=== PATIENT | male | born 1975 | race Caucasian/White ===

== ENCOUNTER → 2021-10-11 14:56 | Outpatient (CLI) | payer MEDICAID, SELFPAY ==
[2021-10-11 15:17] LABS: Basophils # 0.1 K/mm3 (0-0.2); Basophils % 0.8 % (0.1-2.0); Eosinophils # 0.3 K/mm3 (0.0-0.4); Eosinophils % 4.1 % (0.1-12.0); Hematocrit 45.2 % (42.0-52.0); Lymphocytes # 1.6 K/mm3 (0.7-4.5); Lymphocytes % 25.5 % (10-50); Mean Corpuscular HGB Conc 33.1 g/dL (31.8-35.4); Mean Corpuscular Volume 96.6 fl (80-94); Mean Platelet Volume 9.7 fl (7.4-10.4); Monocytes # 0.4 K/mm3 (0.1-1.0); Neutrophils % 63.6 % (37.0-80.0); Platelet Count 270 K/mm3 (142-424); Red Blood Count 4.68 M/mm3 (4.60-6.20); Red Cell Distribution Width 13.6 % (11.5-17.5); White Blood Count 6.3 K/mm3 (4.8-10.8)
[2021-10-11 16:30] LABS: Alanine Aminotransferase 9 U/L (12-78); Albumin Level 4.5 g/dl (3.5-5.0); Albumin/Globulin Ratio 1.6 (1.1-1.8); Alkaline Phosphatase 76 U/L (38-126); Anion Gap 9.8 mEq/L (5-15); Aspartate Amino Transferase 22 U/L (17-59); Bilirubin,Total 0.2 mg/dl (0.2-1.3); Blood Urea Nitrogen 14 mg/dl (9-20); Calcium 9.3 mg/dl (8.4-10.2); Carbon Dioxide 30 mmol/L (22.0-30.0); Chloride 103 mmol/L (98-107); Cholesterol 195 mg/dl (140-200); Estimated Glomerular Filt Rate 91 ml/min (>60); GFR (African American) 110 ML/MIN (>60); Globulin 2.8 g/dL (1.3-3.2); Glucose 105 mg/dl (74-100); HDL Cholesterol 39 mg/dl (40-60); Potassium 4.8 mmoL/L (3.5-5.1); Sodium 138 mmol/L (136-145); Total Protein,Serum 7.3 g/dl (6.3-8.2); Triglycerides 86 mg/dl (30-150); VLDL Cholesterol 17 mg/dL (0-40)
[2021-10-11 16:41] LABS: Direct LDL Cholesterol 145.83 mg/dL (100-129)
== END ==
PROVIDERS: Visit Provider Family Medicine
DX: G43.909 Migraine, unspecified, not intractable, without status migrainosus (principal); R11.0 Nausea; R56.9 Unspecified convulsions
CPT/HCPCS: 80053; 80061; 85025

== ENCOUNTER → 2021-10-28 07:47 | Outpatient (CLI) | payer MEDICAID, SELFPAY ==
--- NOTE | 2021-10-28 07:56 | CT_ITS ---
PROCEDURE: CT HEAD/BRAIN WO/W CON CLINICAL INDICATION: seizure COMPARISON: No exams were available for comparison TECHNIQUE: IV Contrast: 100ML Isovue 370 Axial images obtained. All CT scans at the facility use one or more dose reduction, viz: automated exposure control, ma/kV adjustment per patient size (including targeted exams where dose is matched to indication, i.e. head), or iterative reconstruction technique. FINDINGS: No midline shift, mass effect, intracranial hemorrhage, hydrocephalus, or extra-axial fluid collection is evident. No enhancing lesions. Suspected small area of encephalomalacia in the left cerebellum superiorly. The calvarium has an unremarkable appearance. No mastoid effusion. Mild mucosal thickening of the ethmoid sinuses. IMPRESSION: No acute intracranial findings. Suspected small area of encephalomalacia in the left cerebellar hemisphere superiorly Dictated by: Clyde Nuno MD 10/28/2021 17:38 Clyde Nuno MD in [facility] 10/28/2021 17:38
== END ==
PROVIDERS: PCP Family Medicine; Visit Provider Family Medicine
DX: R56.9 Unspecified convulsions (principal)
CPT/HCPCS: 70470; Q9967

== ENCOUNTER → 2021-11-04 12:42 | Outpatient (CLI) | payer MEDICAID, SELFPAY ==
--- NOTE | 2021-11-04 13:05 | MR_ITS ---
PROCEDURE: MR HEAD/BRAIN WO/W CON CLINICAL INDICATION: seizure COMPARISON: CT CT HEAD/BRAIN WO/W CON from 10/28/2021 TECHNIQUE: Routine multiplanar multi echo sequences are performed without and with gadolinium enhancement. FINDINGS: No midline shift, mass effect, intracranial hemorrhage, or hydrocephalus. No evidence of acute infarction. No enhancing lesions. No areas of encephalomalacia. Abnormality noted on the CT scan is felt to have been due to partial volume averaging artifact. The cerebellopontine angles, cerebellum, and brainstem have an unremarkable appearance. The pituitary, optic chiasm, corpus callosum, and craniocervical junction are unremarkable. There is slight decreased volume of the right hippocampal gyrus compared to the left side with minimal asymmetric prominence of the temporal horn of the right lateral ventricle. No increased signal intensity of the hippocampal gyrus. No mastoid effusion or sinus air-fluid level. IMPRESSION: No acute finding. There is is minimal prominence of the temporal horn of the right lateral ventricle with suggested slight decrease in the right hippocampal gyrus volume compared to the left side. These findings are nonspecific but may be seen with hippocampal sclerosis. Please correlate with clinical parameters and EEG findings. Dictated by: Clyde Nuno MD 11/05/2021 10:00 Clyde Nuno MD in [facility] 11/05/2021 10:00
== END ==
PROVIDERS: PCP Family Medicine; Visit Provider Specialist
DX: G40.909 Epilepsy, unspecified, not intractable, without status epilepticus (principal); Z91.89 Other specified personal risk factors, not elsewhere classified
CPT/HCPCS: 70553; 93270; A9576

== ENCOUNTER → 2021-11-08 09:30 | Outpatient (CLI) | payer MEDICAID, SELFPAY ==
--- NOTE | 2021-11-08 10:40 | ECG_ITS ---
APPROVED REPORT Exam: Resting ECG HR:51 bpm ECG Measurements Heart Rate 51 AXES FL 168 P 53 QRSd 92 QRS 76 QT 420 T 19 QTc 387 Conclusion Sinus bradycardia with sinus arrhythmia Otherwise normal ECG Electronically signed by : Lake Talbot MD 11/10/2021 13:27:19
== END ==
PROVIDERS: PCP Family Medicine; Visit Provider Specialist
DX: R00.1 Bradycardia, unspecified (principal)
CPT/HCPCS: 93005; 95816

== ENCOUNTER → 2021-11-26 09:05 | Outpatient (CLI) | payer MEDICAID, SELFPAY ==
--- NOTE | 2021-11-26 09:06 | CA_ITS ---
APPROVED REPORT Exam: Exercise Treadmill Technologist: Oneida Iraheta, Ht: 6 ft 2 in Wt: 178 lbs BSA: 2.07 m2 HR: 64 bpm BP: 106/73 mmHg Rhythm: NSR Medical History Medications: Ibuprofen,,,,, Allergies: FAMOTIDINE Cardiac Risk Factors: Smoking Stress Test Details Test: Dontrell, Exercise stress testing was performed using a Dontrell protocol. HR Resting HR: 67 bpm Max Heart Rate (APMHR): 174.718396 bpm Max HR Achieved: 168 bpm Target HR (85% APMHR): 147.339910 bpm % of APMHR: 96.55 Recovery HR: 75 bpm BP Resting BP: 113/71 mmHg Max BP: 175/70 mmHg Recovery BP: 734.0/77.0 mmHg ECG Resting ECG: NSR Clinical Reason for Termination: Leg pain Exercise duration: 09:40 min Highest Stage Achieved: Stage 3: 3.4 mph at 14% grade. Exercise capacity: 10.1 METs Stress ECG Conclusion PT EXERCISED 9:40 MIN. BP=905 BPM. 10.1 METS. TEST STOPPED DUE TO LEG CRAMPS. RARE PVCS EARLY IN STAGE I AND II. <1.G MM ST SEGMENT CHANGES. NEGATIVE. Test Summary Stage 2 02:00 12.0 2.5 106 . . . . REST . . . . . . . Sitting REST 08:57 0.0 1.2 67 . 113/ 71 . . Stage 1 01:00 10.0 1.7 93 . . . . Stage 1 02:00 10.0 1.7 98 . . . . Stage 1 03:00 10.0 1.7 92 . 145/ 60 . . Stage 2 01:00 12.0 2.5 106 . . . . Stage 2 02:00 12.0 2.5 106 . . . . Stage 2 03:00 12.0 2.5 111 . 155/ 70 . . Stage 3 01:00 14.0 3.4 134 . . . . Stage 3 02:00 14.0 3.4 135 . . . . Stage 3 03:00 14.0 3.4 141 . 160/ 80 . . Stage 4 00:40 16.0 2.2 157 . . . Stop exercise at 09:40 RECOVERY 01:00 0.0 0.0 128 . 175/ 70 . . RECOVERY 02:00 0.0 0.0 85 . 175/ 70 . . RECOVERY 03:00 0.0 0.0 93 . 175/ 70 . . RECOVERY 04:00 0.0 0.0 87 . 140/ 87 . . RECOVERY 05:00 0.0 0.0 76 . 134/ 77 . . RECOVERY 06:00 0.0 0.0 0 . 134/ 77 . . RECOVERY 06:56 0.0 0.0 0 . 134/ 77 . . Electronically signed by : Kamaljit Barragan MD 11/26/2021 12:54:47
--- NOTE | 2021-11-26 09:06 | CA_ITS ---
APPROVED REPORT EXAM: Comprehensive 2D, Doppler, and color-flow Echocardiogram Regional Vice President Surgical Sales: Sandra Hurley CRT Ht: 6 ft 2 in Wt: 178lbs BSA: 2.07 BP: 100/70 mmHg Indications: abnormal ekg, syncope, dizziness 2D Dimensions LVOT 1.94 cm (M/F) 1.5-2.5 LA Volume 44.20 mL LA Volume Index 21.40 mL/m2 (M/F) 16-34 M-Mode Dimensions RVDd 2.33 cm (0.9-2.6) LA Diam 1.90 cm (1.9-4.0) LVDd 4.55 cm (3.5-5.7) Ao Diam 3.23 cm (2.0-3.7) LVDs 2.89 cm (3.5-5.7) IVSd 1.15 cm (0.6-1.1) PWd 0.70 cm (0.6-1.1) EF (Teich) 66.40% FS 36.50% EDV (Teich) 94.90 mL TAPSE 2.78 (<1.7) ESV (Teich) 31.90 mL LV Diastology E Decel Time 297.00 (160-240 msec) E/A Ratio 1.40 MED E' 10.20 (< 7 cm/sec) MED A' 7.20 cm/s E'/MED E' Ratio 6.37 (>14) LAT E' 11.80 (<10 cm/sec) LAT A' 8.00 cm/s E/LAT E' Ratio 5.51 (>14) Aortic Valve AO Peak GR. 6.00 mmHg Mitral Valve MV E Max Dell. 65.00 (40-130 cm/s) MV A Velocity 47.00 (40-130 cm/s) E/A Ratio 1.40 MV Decel. Time 297.00 (160-240 ms) MV PHT 87.00 ms Pulmonary Valve PV Peak Velocity 92.00 (50-150 cm/s) Tricuspid Valve TR P. Velocity 154.00 cm/s RAP Estimate 10.00 mmHg RVSP 19.50 mmHg Left Ventricle Left atrium is normal size, left ventricle is normal size, there is no concentric left ventricular hypertrophy, visually estimated ejection fraction of 55% with no regional wall motion abnormality. Diastolic parameters are within normal range. Right Ventricle Right atrium and right ventricle are normal size and contractility. Aortic Valve Aortic valve is normal there is no aortic stenosis or aortic insufficiency. Mitral Valve Mitral valve grossly normal, there is no significant mitral regurgitation. Tricuspid Valve Tricuspid valve is grossly normal, there is no significant tricuspid regurgitation. Pulmonic Valve Pulmonic valve is poorly visualized. Great Vessels Aortic root is normal size. Inferior vena cava is normal size with normal contractility. Pericardium No significant pericardial effusion noted. Conclusion 1. Normal left ventricular size, preserved left ventricular systolic function, visually estimated ejection fraction of 55% with no regional wall motion abnormality, diastolic parameters are within normal range. 2. No significant pericardial effusion noted. 3. Inferior vena cava normal size with normal inspiratory collapse. Electronically signed by : Kamaljit Barragan MD 11/26/2021 14:23:19
== END ==
PROVIDERS: PCP Family Medicine; Visit Provider Nurse Practitioner Family
DX: R42 Dizziness and giddiness (principal); R55 Syncope and collapse; R94.31 Abnormal electrocardiogram [ECG] [EKG]; F17.200 Nicotine dependence, unspecified, uncomplicated
CPT/HCPCS: 93017; 93306

== ENCOUNTER → 2021-12-04 10:03 | Outpatient (CLI) | payer MEDICAID, SELFPAY | PROVIDERS: PCP Family Medicine; Visit Provider Surgery | DX: Z01.812 Encounter for preprocedural laboratory examination (principal); Z11.52 Encounter for screening for COVID-19; Z12.11 Encounter for screening for malignant neoplasm of colon | CPT/HCPCS: C9803; U0003; U0005 ==

== ENCOUNTER 2021-12-07 11:05 | Day surgery (SDC) | payer MEDICAID, SELFPAY ==
[2021-12-03 13:49] VITALS: BMI 23.1
[2021-12-07 11:18] VITALS: BP 140/95; PULSE 55; RESP 16; TEMP 37.2; O2SAT 98
--- NOTE | 2021-12-07 11:56 | P.PN_ITS ---
[facility] Anesthesia Checklist - Patient Identification Patient Identification: Arm Band - Structural Data Admitted From: Home Planned Operative Procedure/s: colonoscopy Consent for Planned Operative Procedure(s) Verified: Yes Verified Documents: Surgical Consent, History and Physical - NPO Status Verified Time NPO: 00:00 - Additional verifications Anesthesia Reactions: No - Airway Assessment C-Spine Mobility Assessed: Yes (mp2) TMJ Mobility Assessed: Yes Dentition: Good Dentition - Neurological Assessment Level of Consciousness: Awake, Alert - Anesthesia Plan Anesthesia Risk discussed: Yes Anesthesia Plan: Verified ASA Class: II Anesthesia Type: MAC [facility] History I have reviewed the patient's past medical history: Yes Medical History: Reports:: Cancer (childhood-possible), Hiatal Hernia, Kidney Stones, Migraine, Palpitations Denies:: Diabetes Mellitus Type 1, Diabetes Mellitus Type 2, Internal Pacemaker, MRSA, Seizures *Have you ever received a pneumonia vaccine?: No *Have you received a flu vaccine this season?: No Anesthesia experience/problems:: nac Laterality Cases: Left: Arthroscopy Shoulder Other Surgeries: Yes: Other. No: Pacemaker Amputation: No Fractures: Yes - *Social History Last grade of school completed: Some college Smoking Status: Current every day smoker Tobacco Type: cigarettes # Packs/Day (cigarettes): 1 Alcohol Intake: current Alcohol Intake Frequency:: holidays/special occasions only Substance Use Type: marijuana *Occupational Status:: employed Housing: house Household Members: none *Travel in the last 8 weeks: Inside the [facility] Family Hx:: Diabetes, Other, Cancer
[2021-12-07 12:26] VITALS: O2SAT 97
--- NOTE | 2021-12-07 13:08 | P.PCN_ITS ---
- Procedure: Date: 12/07/21 Patient Date of :: 1975 Procedure Performed:: Colonoscopy with polypectomy Indications:: Screening Family history of colon cancer Performing Provider:: José Manuel Cote MD Referring Provider:: . Sedation:: Monitored anesthesia care Procedure:: After informed consent was obtained the patient was taken to the endoscopy s [facility]. Sedation ensued after the patient was transferred to the left lateral decubitus position. Pulse, blood pressure, and oxygen saturation were monitored throughout the procedure. Digital rectal exam revealed no significant abnormality. The colonoscope was placed in position. The entire colon was evaluated. The colonoscope was carefully removed and the patient was transferred to recovery in stable condition. Please see findings and specimens below for detail. Findings:: Bowel preparation moderate to poor Hemorrhoidal cushions/tags with no thrombosis or active bleeding Fairly significant lack of relaxation Multiple complex polyps (see specimens) Specimens:: Biopsy of periappendiceal apparent submucosal lipoma Large lobulated polyp at 60 cm (snare) Large pedunculated/lobulated polyp at 30 cm (snare) Complex lobulated polyp at 20 cm (snare) Recommendations:: Timing of repeat colonoscopy is pending pathology but will likely be between 1-2 years secondary to size/nature of polyps and limitations in visualization. Complications:: No immediate Estimated blood obtained (mL): 1
[2021-12-07 13:10] VITALS: BP 113/61; PULSE 86; RESP 19; TEMP 36.4; O2SAT 97
[2021-12-07 13:27] VITALS: BP 124/69; PULSE 61; RESP 16; O2SAT 99
[2021-12-07 13:40] VITALS: BP 109/62; PULSE 60; RESP 16; O2SAT 98
== END 2021-12-07 13:40 | disposition home or self-care (01) ==
LOC: OUTP 11:06
PROVIDERS: PCP Family Medicine; Visit Provider Surgery
PROC: 0DJD8ZZ Inspection of Lower Intestinal Tract, Via Natural or Artificial Opening Endoscopic (ICD-10-PCS; CPT 45380; principal; 2021-12-07 12:30)
DX: Z12.11 Encounter for screening for malignant neoplasm of colon (principal); Z80.0 Family history of malignant neoplasm of digestive organs; K64.0 First degree hemorrhoids; K63.5 Polyp of colon; K63.89 Other specified diseases of intestine; G43.909 Migraine, unspecified, not intractable, without status migrainosus; R00.2 Palpitations; Z72.0 Tobacco use; F12.90 Cannabis use, unspecified, uncomplicated; Z83.3 Family history of diabetes mellitus; Z80.9 Family history of malignant neoplasm, unspecified; Z88.8 Allergy status to other drugs, medicaments and biological substances
CPT/HCPCS: 45380; 45385

== ENCOUNTER → 2022-01-19 15:42 | Outpatient (CLI) | payer MEDICAID, SELFPAY | PROVIDERS: Visit Provider Nurse Practitioner Family | DX: R10.9 Unspecified abdominal pain (principal) | CPT/HCPCS: 87086 ==

== ENCOUNTER → 2022-12-22 10:51 | Outpatient (CLI) | payer MEDICAID, SELFPAY ==
--- NOTE | 2022-12-22 10:57 | CT_ITS ---
FINAL REPORT TECHNIQUE: Axial CT images were performed through the head. Coronal reformatted images were submitted. This study was performed with techniques to keep radiation doses as low as reasonably achievable (ALARA). Individualized dose reduction techniques using automated exposure control or adjustment of mA and/or kV according to the patient's size were employed. CLINICAL HISTORY: . headaches COMPARISON: 12/29/2020 FINDINGS: The ventricles are normal in size. There is no evidence of hemorrhage. There is no mass or edema identified. There is no abnormal extra-axial fluid seen. The sinuses are well aerated. IMPRESSION: No acute intracranial process. Reviewed, Interpreted and Dictated by Ricki Garzon MD Transcribed by Jennifer Monet Authenticated and [facility]
== END ==
PROVIDERS: PCP Family Medicine; Visit Provider Student in an Organized Health Care Education/Training Program
DX: G43.909 Migraine, unspecified, not intractable, without status migrainosus (principal)
CPT/HCPCS: 70450

== ENCOUNTER 2023-03-21 09:30 | Day surgery (SDC) | payer MEDICAID, SELFPAY ==
[2023-03-15 15:10] VITALS: BMI 23.1
--- NOTE | 2023-03-15 15:13 | SUR.PREOP ---
pt received two scripts for procedure. spoke with dr. carey office, BJ is to call patient to instruct him on which one to take before the procedure.
[2023-03-21] VITALS (7 sets, daily range): BP systolic 106–124; BP diastolic 62–83; PULSE 54–71; RESP 14–18; TEMP 36.2–36.8; O2SAT 95–100
--- NOTE | 2023-03-21 09:53 | EXP.ANES.CKL ---
[facility] Disclaimer: The information contained in this section may have been updated after the patient was seen, as this information can be updated by other users. Medical History Abnormal electrocardiography Dizziness Syncope Tobacco dependence syndrome Surgical History History of colonoscopy Family History Other Family history of cancer Family history of hyperlipidemia Family history of hypertension Family history of myocardial infarction Social History Smoking Status: Current every day smoker tobacco type: cigarettes packs per day: 1 alcohol intake: never substance use type: marijuana current occupational status: employed Travel in the last 8 weeks: None household members: none housing: house caffeine: Yes [facility] Anesthesia Checklist Patient Identification Patient Identification: Arm Band and Verbal (Name & ) Structural Data Admitted From: Home Planned Operative Procedure/s: Colonoscopy Consent for Planned Operative Procedure(s) Verified: Yes NPO Status Verified Time NPO: 00:00 Additional verifications Anesthesia Reactions: No (states woke up during surgery in past) Hx Blood Transfusions: No Blood Transfusion Reaction: No Airway Assessment C-Spine Mobility Assessed: Yes TMJ Mobility Assessed: Yes Dentition: Good Dentition Neurological Assessment Level of Consciousness: Awake Hx Seizures: No Numbness or tingling in extremities: No Anesthesia Plan Anesthesia Risk discussed: Yes Anesthesia Plan: Verified ASA Class: I Anesthesia Type: MAC
--- NOTE | 2023-03-21 10:41 | HMH.SCOPE ---
Procedure: Date: 03/21/23 Patient Date of :: 1975 Procedure Performed:: Colonoscopy with polypectomy Indications:: History of colon polyps Bleeding hemorrhoids Performing Provider:: José Manuel Cote MD Referring Provider:: . Sedation:: Monitored anesthesia care Procedure:: After informed consent was obtained the patient was taken to the endoscopy suite. Sedation ensued after the patient was transferred to the left lateral decubitus position. Pulse, blood pressure, and oxygen saturation were monitored throughout the procedure. Digital rectal exam revealed no significant abnormality (some lateral thickening consistent with hemorrhoidal cushions noted). The colonoscope was placed in position. The entire colon was evaluated. The colonoscope was carefully removed and the patient was transferred to recovery in stable condition. Please see findings and specimens below for detail. Findings:: Bowel preparation fair Hemorrhoidal cushions/tags with no thrombosis or bleeding Moderate spasticity/tortuosity Polyps (see specimens) Specimens:: Adjacent sessile polyps at 45 cm (cold snare) Polyp at 40 cm (cold snare) Polyp at 70 cm (cold biopsy forceps) Recommendations:: Timing of repeat colonoscopy is pending pathology but will be likely around 1-2 years secondary to history of multiple complex polyps on multiple occasions and spasticity/tortuosity. Continue current therapy for hemorrhoids. May benefit from examination under anesthesia. Complications:: No immediate Estimated blood obtained (mL): 1
== END 2023-03-21 11:21 | disposition home or self-care (01) ==
PROVIDERS: PCP Family Medicine; Visit Provider Surgery
PROC: 0DJD8ZZ Inspection of Lower Intestinal Tract, Via Natural or Artificial Opening Endoscopic (ICD-10-PCS; CPT 45380; principal; 2023-03-21 10:30)
DX: K64.8 Other hemorrhoids (principal); D12.5 Benign neoplasm of sigmoid colon; D12.7 Benign neoplasm of rectosigmoid junction
CPT/HCPCS: 45380; 45385; J2704

== ENCOUNTER → 2023-03-27 11:39 | Outpatient (CLI) | payer MEDICAID, SELFPAY ==
--- NOTE | 2023-03-27 11:41 | XR_ITS ---
FINAL REPORT CLINICAL HISTORY: pain FINDINGS: 2 views of the right knee were obtained. There is no acute fracture or dislocation. The joint spaces are intact. There is no acute soft tissue abnormality. IMPRESSION: No acute process. Reviewed, Interpreted and Dictated by Lauro Mcclain III, MD Transcribed by Quirino Ha Authenticated and [facility]
== END ==
PROVIDERS: PCP Family Medicine; Visit Provider Family Medicine
DX: M25.561 Pain in right knee (principal)
CPT/HCPCS: 73560

== ENCOUNTER → 2023-05-08 13:35 | Outpatient (CLI) | payer OTHER, MEDICAID, SELFPAY ==
--- NOTE | 2023-05-08 13:42 | MR_ITS ---
FINAL REPORT CLINICAL HISTORY: Rt knee pain. MEDIAL SIDED KNEE PAIN WITH SWELLING. KNEE INSTABILITY FINDINGS: Multiplanar MR imaging of the right knee was performed without contrast. There is abnormal appearance of the posterior horn of the medial meniscus consistent with tear. Lateral meniscus is intact. The anterior and posterior cruciate ligaments are intact. The medial collateral ligament and lateral ligamentous complex are intact. The patellar and quadriceps tendons are intact. There is no evidence of fracture. No focal abnormality is identified of the articular cartilage. A small joint effusion is seen. The musculature is intact. No soft tissue mass or cyst is identified. IMPRESSION: Tear of the posterior horn of the medial meniscus. Small joint effusion. Reviewed, Interpreted and Dictated by Lauro Mcclain III, MD Transcribed by Naomie Ortiz Authenticated and [facility]
== END ==
PROVIDERS: PCP Family Medicine; Visit Provider Orthopaedic Surgery
DX: M25.561 Pain in right knee (principal)
CPT/HCPCS: 73721

== ENCOUNTER → 2023-05-11 11:40 | Outpatient (CLI) | payer OTHER, MEDICAID, SELFPAY ==
[2023-05-11 11:44] LABS: MANUAL DIFFERENTIAL MANUAL DIFFERENTIAL (MANUAL DIFF)
--- NOTE | 2023-05-11 11:50 | XR_ITS ---
FINAL REPORT CLINICAL HISTORY: cough, h/o tobacco use Pre op testing for knee surgery FINDINGS: TWO VIEW CHEST The heart size is normal. The mediastinum is normal. The lungs are clear. There is no pneumothorax. IMPRESSION: No acute cardiopulmonary process. Reviewed, Interpreted and Dictated by Lauro Mcclain III, MD Transcribed by Luisa Phillips Authenticated and [facility]
[2023-05-11 12:03] LABS: Basophils % 0.5 % (0.1-2.0); Eosinophils # 0.3 K/mm3 (0.0-0.4); Eosinophils % 5.5 % (0.1-12.0); Hematocrit 42.3 % (42.0-52.0); Hemoglobin 13.5 g/dL (14.1-18.0); Lymphocytes # 1.7 K/mm3 (0.7-4.5); Lymphocytes % 31.2 % (10-50); Mean Corpuscular HGB Conc 31.9 g/dL (31.8-35.4); Mean Corpuscular Hemoglobin 30.7 pg (27.0-31.2); Mean Corpuscular Volume 96.2 fl (80-94); Mean Platelet Volume 7.8 fl (7.4-10.4); Monocytes # 0.4 K/mm3 (0.1-1.0); Monocytes % 7.1 % (1.7-9.3); Neutrophils # 3.1 K/mm3 (1.8-7.8); Neutrophils % 55.7 % (37.0-80.0); Platelet Count 214 K/mm3 (142-424); Red Blood Count 4.39 M/mm3 (4.60-6.20); Red Cell Distribution Width 13.5 % (11.5-17.5); White Blood Count 5.6 K/mm3 (4.8-10.8)
[2023-05-11 12:41] LABS: Alanine Aminotransferase 15 U/L (12-78); Albumin Level 4.2 g/dl (3.5-5.0); Albumin/Globulin Ratio 1.6 (1.1-1.8); Alkaline Phosphatase 76 U/L (38-126); Anion Gap 12.6 mEq/L (5-15); Aspartate Amino Transferase 21 U/L (17-59); Bilirubin,Total 0.3 mg/dl (0.2-1.3); Blood Urea Nitrogen 13 mg/dl (9-20); Calcium 8.5 mg/dl (8.4-10.2); Carbon Dioxide 30 mmol/L (22.0-30.0); Chloride 101 mmol/L (98-107); Estimated Glomerular Filt Rate 90 ml/min (>60); GFR (African American) 109 ML/MIN (>60); Globulin 2.6 g/dL (1.3-3.2); Glucose 79 mg/dl (74-100); Potassium 4.6 mmoL/L (3.5-5.1); Sodium 139 mmol/L (136-145); Total Protein,Serum 6.8 g/dl (6.3-8.2)
--- NOTE | 2023-05-11 15:07 | ECG_ITS ---
APPROVED REPORT Exam: Resting ECG HR:56 bpm ECG Measurements Heart Rate 56 AXES VA 180 P 70 QRSd 82 QRS 82 QT 377 T 51 QTc 369 Conclusion SINUS BRADYCARDIA BORDERLINE ECG UNCONFIRMED REPORT Electronically signed by : Lake Talbot MD 05/11/2023 22:20:06
[2023-05-11 15:48] LABS: Eosinophils % 1 % (0-3); Lymphocytes % 40 % (10-50); Monocytes % 3 % (2-9); Neutrophils % 56 % (42-76); Platelet Estimate Normal; RBC Morphology Normal; Total Cells Counted 100
== END ==
PROVIDERS: PCP Family Medicine; Visit Provider Orthopaedic Surgery
DX: Z01.818 Encounter for other preprocedural examination (principal); S83.231A Complex tear of medial meniscus, current injury, right knee, initial encounter
CPT/HCPCS: 36415; 71046; 80053; 85007; 85014; 85018; 85048; 85049; 93005

== ENCOUNTER 2023-05-29 06:01 | Day surgery (SDC) | payer OTHER, MEDICAID, SELFPAY ==
[2023-05-26 10:27] VITALS: BMI 23.1
[2023-05-29] VITALS (9 sets, daily range): BP systolic 105–123; BP diastolic 68–90; PULSE 52–67; RESP 14–18; TEMP 36.6–36.8; O2SAT 95–100
--- NOTE | 2023-05-29 07:06 | EXP.ANES.CKL ---
[facility] Disclaimer: The information contained in this section may have been updated after the patient was seen, as this information can be updated by other users. Medical History Abnormal electrocardiography Dizziness History of bradycardia History of migraine Syncope Tobacco dependence syndrome Surgical History (Updated 05/29/23 @ 06:42 by Eleni Dean RN) H/O elbow surgery History of colonoscopy History of shoulder surgery History of surgery Family History Other Family history of cancer Family history of hyperlipidemia Family history of hypertension Family history of myocardial infarction Social History Smoking Status: Current every day smoker tobacco type: cigarettes packs per day: 1 years smoked: 35 alcohol intake: former substance use type: marijuana current occupational status: employed Travel in the last 8 weeks: Inside the [place] household members: none housing: house caffeine: Yes [facility] Anesthesia Checklist Patient Identification Patient Identification: Verbal (Name & ) Structural Data Admitted From: Home Planned Operative Procedure/s: knee arthroscopy Consent for Planned Operative Procedure(s) Verified: Yes NPO Status Verified Time NPO: 00:00 Additional verifications Anesthesia Reactions: No (PT STATES HE WOKE UP DURING PAST SURGERY) Hx Blood Transfusions: No Blood Transfusion Reaction: No Airway Assessment C-Spine Mobility Assessed: Yes TMJ Mobility Assessed: Yes Dentition: Good Dentition Neurological Assessment Level of Consciousness: Awake, Alert and Appropriate Anesthesia Plan Anesthesia Risk discussed: Yes Anesthesia Plan: Verified ASA Class: II Anesthesia Type: General
--- NOTE | 2023-05-29 08:00 | P.OP_ITS ---
Date of procedure: 05/29/23 Pre-op Diagnosis:: Right knee medial meniscus tear Post-op Diagnosis:: Same Procedure performed:: Right knee arthroscopy partial medial meniscectomy Surgeon:: Eder Chase DO SUPERVISOR [employer]:: Other Anesthesia: GETA Estimated blood loss (mL): 0 Operative findings:: See dictation Operative note:: Patient was identified preoperatively. Right knee marked with yes my initials. Transferred operative suite. Placed upon operating bed. Right lower extremity prepped and draped within the knee lion. Once prepped and draped final operative timeout performed to identify proper patient procedure and extremity. Everyone involved in the case agreed. No counter indications to beginning. Did receive preoperative antibiotics. Marking pen was used to jeffy bony landmarks in the and standard portal sites. Esmarch was used to exsanguinate the extremity pneumatic tourniquet inflated to 300 mmHg. Skin knife was used to incise standard anterior lateral portal and blunt with trocar was placed in the patellofemoral joint. This was exchanged with a camera and diagnostic arthroscopy began. Swept into the medial joint line where the anterior medial portal was made under direct visualization. This is exchanged with a probe. There is a large macerated tear of the posterior horn of the medial meniscus. Using a combination of straight biter and sucker shaver partial medial meniscectomy was performed back to stable rim. This was probed and the root was stable and the meniscus was stable. Tensions brought to the intercondylar notch the ACL was seen and intact. Tensions brought to the lateral joint line within the lateral joint line the lateral cartilage was intact the lateral meniscus was intact. I swept into the medial and lateral gutters no further pathology was seen camera was removed. Joint drained. Local anesthesia infiltrated the portal sites. Skin closed with nylon stitch. Sterile dressing placed from toe to thigh. Patient waken anesthesia taken recovery stable condition. Tourniquet time (min): 13 Condition: stable Disposition: PACU Complications:: None apparent
--- NOTE | 2023-05-29 08:07 | EXP.ANES.I ---
[facility] Anesthesia Record Part I Anesthesia Record I Intake, IV Amount: 700 Estimated blood loss (mL): 10 Urine output (mL): 0 Blood Products used (#): none Blood Pressure: 105/79 SaO2: 95 Pulse Rate: 58 Respiratory Rate: 14 Temperature: 98.1 F Patient is:: Drowsy and Stable Stable to PACU at:: 08:05
--- NOTE | 2023-05-30 07:26 | P.PNANES_ITS ---
[facility] Anesthesia Record Part II Anesthesia Record Part II Discharge Time: 08:35 Destination: Surgical Day Care (OP Surgery) PACU nurse assessment reviewed?: Yes Patient Condition:: Good Anesthesia Complications:: None Swallowing reflex intact?: Yes Cyanosis?: No Blood Pressure: 116/79 Pulse Rate: 67 Temperature: 97.9 F Mental Status: Alert & Oriented Pain level:: 0 Nausea and/or vomitting:: None Intake, IV Amount: 0
[2023-05-30 07:27] VITALS: BP 116/79; PULSE 67; TEMP 36.6
== END 2023-05-29 09:07 | disposition home or self-care (01) ==
PROVIDERS: PCP Family Medicine; Visit Provider Orthopaedic Surgery
PROC: (CPT 29870; principal; 2023-05-29 07:30)
DX: S83.231A Complex tear of medial meniscus, current injury, right knee, initial encounter (principal); W22.8XXA Striking against or struck by other objects, initial encounter
CPT/HCPCS: 29881; 96374; J2405

== ENCOUNTER 2023-08-15 14:00 | Outpatient (RCR) | payer OTHER, MEDICAID, SELFPAY ==
--- NOTE | 2023-07-26 13:46 | HMH.PTOPEV ---
PT Outpatient Evaluation Rehab PT Outpatient Evaluation Start: 07/26/23 11:05 Freq: Status: Active Protocol: Document 07/26/23 11:43 KWASI (Rec: 07/26/23 13:46 KWASI [id number]) E-signed By Jordy Whitman, PT Outpatient Therapy Subjective History Subjective History Patient is a 47 year old male presenting to outpatient PT with reports of R post- surgical knee pain S/P R partial medial meniscectomy performed 05/29/23. Initial injury occurred after a pallet jess hit the side of his knee 02/2023. Patient reports that initially S/P he was nearly pain free until he woke up from sleeping after feeling a pop in the R knee. Patient reports excruciating pain ever since. Patient followed up with MD and received an injection which has provided no relief per patient report. Comorbidities include hx of cancer, L RCR and ulnar tunnel release bilaterally. New diagnosis of cancer in past 12 No months? Chief Complaint Pain,Stiff,Swelling,Gives out/ Unstable Symptom Type Ache,Throb,Sharp Symptoms Relieved By Nothing Symptoms Aggravated By Standing,Physical Activity, Twisting Prior Functional Limitations None Current Functional Limitations Housework,Standing,Recreation Activity,Walking,Stairs, Balance Symptom Description Constant but Variable Level of pain today (0-10) 6 Pain scale - at its best (0-10) 4 Pain scale - at its worst (0-10) 9 Hip/Knee Eval Gait Observation General Gait Pattern Observation Antalgic Gait,Decrease Weight Bear (R) Assistive Device Assistive Devices None / NA Palpation Tenderness right Knee Palpation Finding Tenderness Knee Palpation Overall Comment MJL, medial patellar border 3/ 4 MMT left Hip Flexion Strength Grade 4- Good- Hip Abduction Strength Grade 4- Good- Hip Adduction Strength Grade 4- Good- Hip Extension Strength Grade 4- Good- Hip External Rotation Strength Grade 4 Good Hip Internal Rotation Strength Grade 4 Good Knee Extension
== END 2023-08-15 14:05 | disposition home or self-care (01) ==
LOC: PT 14:00
PROVIDERS: PCP Family Medicine; Visit Provider Orthopaedic Surgery
DX: M25.561 Pain in right knee (principal); S83.231S Complex tear of medial meniscus, current injury, right knee, sequela
CPT/HCPCS: 97010; 97014; 97016; 97110; 97163; 97530; G0283

== ENCOUNTER → 2023-08-18 12:53 | Outpatient (CLI) | payer OTHER, MEDICAID, SELFPAY ==
--- NOTE | 2023-08-18 12:53 | MR_ITS ---
FINAL REPORT CLINICAL HISTORY: Rt Knee Pain swelling since surgery COMPARISON: 05/08/2023 FINDINGS: Multiplanar MR imaging of the right knee was performed without contrast. There are interval postoperative changes from partial medial meniscectomy. There is no evidence of retear. The lateral meniscus is intact. The anterior and posterior cruciate ligaments are intact. The medial collateral ligament and lateral ligamentous complex are intact. The patellar and quadriceps tendons are intact. There is no evidence of fracture. There is moderate chondromalacia in the medial tibial plateau which has progressed since the prior exam. A small joint effusion is seen. The musculature is intact. No soft tissue mass or cyst is identified. IMPRESSION: Postoperative changes from partial medial meniscectomy with no evidence of retear. 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 Small joint effusion. Reviewed, Interpreted and Dictated by Lauro Mcclain III, MD Transcribed by Lo Gaxiola Authenticated and [facility]
== END ==
PROVIDERS: PCP Family Medicine; Visit Provider Orthopaedic Surgery
DX: Z98.890 Other specified postprocedural states (principal)
CPT/HCPCS: 73721

== ENCOUNTER → 2023-09-07 11:28 | Outpatient (CLI) | payer MEDICAID, SELFPAY ==
--- NOTE | 2023-09-07 11:29 | MR_ITS ---
FINAL REPORT CLINICAL HISTORY: low back pain. pain radiates down right lower extremity. COMPARISON: None FINDINGS: Multiplanar MR imaging of the lumbar spine was performed without contrast. On the sagittal T2-weighted images, disc degeneration is seen at several levels.. There is mild retrolisthesis of L4 on L5. There is no evidence of fracture. No bony mass is identified. The conus has an unremarkable appearance. No significant canal stenosis is identified. L1-2: No significant central canal stenosis or neuroforaminal narrowing. L2-3: No significant central canal stenosis or neuroforaminal narrowing. L3-4: There is a left foraminal annular tear present, and an associated disc protrusion. This produces mild right and moderate left neural foraminal narrowing. L4-5: An annular bulge is present with a posterior midline annular tear and a small left paracentral disc protrusion. There is moderate bilateral neural foraminal narrowing. L5-S1: Right foraminal annular tear and broad-based disc protrusion producing moderate right and mild left neural foraminal narrowing. IMPRESSION: Moderate degenerative change in the lumbar spine, L3-4, L4-5, and L5-S1, as described. Reviewed, Interpreted and Dictated by Lauro Mcclain III, MD Transcribed by Ashely Herrera Authenticated and [facility]
== END ==
PROVIDERS: PCP Family Medicine; Visit Provider Orthopaedic Surgery
DX: S39.92XA Unspecified injury of lower back, initial encounter (principal); Y99.9 Unspecified external cause status
CPT/HCPCS: 72148

== ENCOUNTER → 2023-10-26 08:53 | Outpatient (POV) | payer MEDICAID, SELFPAY ==
[2023-10-26 09:47] VITALS: BP 116/80; PULSE 76; RESP 18; O2SAT 96; BMI 22.4
--- NOTE | 2023-10-26 10:07 | EXP.PAIN.OV ---
HPI Data of Consult Patient: new to practice Consult date: 10/26/23 Requesting Physician: Amanda Chase APRN Primary Care Provider: Ahsan Sung MD Consult Narrative Reason for consult: Right knee pain, low back pain, left leg pain History of present illness: Mr. Camargo is a 48 year old male who presents today as a new patient. He is a referral from Derek Chase's office. Today he rates his pain a 4 out of 10. Patient states most of his pain is in his right knee as well as he has chronic pain in his low back with radiating symptoms down his entire right leg. Patient states the knee issues have been going on since February following a work-related injury. Patient states he did end up having a torn meniscus and had a knee scope procedure to repair however he is continue to have chronic pain at this site. Patient does describe this as a sharp achy sensation that is worse with increased activity or certain range of motion. He states he is very limited and has difficulty performing ADLs such as cooking or cleaning or even simple ambulation due to the pain. Patient was given an intra-articular knee injection however this made no improvement. Patient states he has tried [id number] Tylenol and ibuprofen along with heat and ice and topicals with no additional relief. Patient states that he has some improvement with a THC cream but it only helps on certain occasions. Patient has tried physical therapy along with at home exercising and stretching for longer than 6 weeks. Patient does state that his low back pain has been going on for years and does believe it has just been wear and tear. Patient states he was in the in the past and believes this may have played a role as well. Patient states that he also has numbness and tingling down his entire right leg. Patient has recently had updated imaging of his lumbar spine. Patient denies any previous back surgery or injections in his back. His Jesus has been reviewed and is appropriate. CC: Amanda Chase APRN [facility] Disclaimer: The information contained in this section may have been updated after the patient was seen, as this information can be updated by other users. Medical History Abnormal electrocardiography Dizziness History of bradycardia History of migraine Syncope Tobacco dependence syndrome Surgical History H/O elbow surgery left History of colonoscopy History of shoulder surgery left x2 shoulder scope History of surgery tumor removed from left chest area Family History Other Family history of cancer Family history of hyperlipidemia Family history of hypertension Family history of myocardial infarction Social History (Updated 10/26/23 @ 09:49 by Raeann Du RN) Smoking Status: Current every day smoker tobacco type: cigarettes packs per day: 1 years smoked: 35 alcohol intake: former substance use type: marijuana current occupational status: employed Travel in the last 8 weeks: [place] the [place] household members: none housing: house marital status: single caffeine: Yes Review of Systems Review of Systems Review of systems:: pertinent systems reviewed and negative unless documented below Review of systems (narrative): Review of Systems: General: No recent weight changes, no fever, no sleep disturbances Respiratory: No cough, no shortness of air, no recurring pulmonary infections Cardiovascular/peripheral vascular: No chest pain, no palpitations, no edema, no shortness of breath Gastrointestinal: No new onset incontinence, normal bowel movements reported Genitourinary: No new onset incontinence Musculoskeletal: Right knee pain, low back pain, right leg pain Psychiatric: [Normal mood/affect] Neurological: [Denies weakness in extremities], [denies balance
== END ==
PROVIDERS: PCP Family Medicine; Visit Provider Nurse Practitioner Family
DX: M51.16 Intervertebral disc disorders with radiculopathy, lumbar region (principal); M79.604 Pain in right leg; M25.561 Pain in right knee; G89.29 Other chronic pain; Z98.890 Other specified postprocedural states; M23.203 Derangement of unspecified medial meniscus due to old tear or injury, right knee
CPT/HCPCS: 99202; G0463

== ENCOUNTER 2023-11-10 07:47 | Day surgery (SDC) | payer OTHER, MEDICAID, SELFPAY ==
[2023-11-10 08:06] VITALS: BP 126/80; PULSE 73; RESP 16; TEMP 36.8; O2SAT 96; BMI 22.4
[2023-11-10 08:10] VITALS: BP 135/80; PULSE 72; PULSE 77; RESP 18; O2SAT 96
[2023-11-10] MEDS: BUPIVACAINE 0.25% 10ML INJ 25 MG IJ (08:10)
[2023-11-10] MEDS: methylPREDNISolone ACETATE 80MG/ML VIAL 80 MG (08:10)
[2023-11-10] MEDS: LIDOCAINE 1% 5ML PF VIAL 5 ML (08:10)
[2023-11-10 08:15] VITALS: BP 129/76; PULSE 67; RESP 16; O2SAT 96
--- NOTE | 2023-11-10 08:17 | EXP.PAIN.PRO ---
Procedure Date: 11/10/23 Time: 08:00 Anesthesiologist:: Zack Raines CRNA Complications:: None Pre-procedure Diagnosis:: Myofascial pain right distal quadriceps tendon. Myofascial pain right proximal patellar tendon. Chronic right knee pain. Status post right knee meniscectomy. Post-procedure Diagnosis:: Same. Indications for Procedure:: This patient is a very pleasant 48-year-old male comes our clinic today for trigger point injections of the right distal quadriceps tendon as well as the right proximal patellar tendon. He has chronic knee pain secondary to osteoarthritis as well as recent right knee meniscectomy. He continues to have knee pain with ambulation. Standing increases pain significantly. Flexion and extension are normal however painful. He rates his pain 7/10. Procedure Details:: Details of the procedure explained to the patient. The patient taken procedure room placed in sitting position. The area over the right knee was cleansed using chlorhexidine's cleansing solution. Using a 25-gauge inch and half needle the distal quadriceps tendon medially and laterally was injected with 4 cc of 1% lidocaine and 10 mg of Depo-Medrol. The same injection was given on the anterior proximal patellar tendon. Patient tolerated procedure without difficulty. There are no complications. Plan and Disposition:: Patient was discharged without incident.
== END 2023-11-10 08:15 | disposition home or self-care (01) ==
PROVIDERS: PCP Family Medicine; Visit Provider Nurse Anesthetist, Certified Registered
DX: M79.18 Myalgia, other site (principal); M25.561 Pain in right knee; G89.29 Other chronic pain
CPT/HCPCS: 20551; J1040

== ENCOUNTER → 2023-11-22 08:40 | Outpatient (POV) | payer OTHER, MEDICAID, SELFPAY ==
[2023-11-22 08:58] VITALS: BP 123/82; PULSE 86; RESP 18; O2SAT 95; BMI 23.1
--- NOTE | 2023-11-22 09:02 | A.OFFVIS_ITS ---
[facility] Pain Management SOAP Note Subjective:: Patient is a pleasant 48-year-old male who presents today for follow-up of right knee trigger point injections of the distal quadriceps tendon, right proximal patellar tendon on 11/10/2023. We are currently treating the patient for left knee pain/osteoarthritis, low back pain. Today he rates his pain a 5 out of 10. Patient denies any new trauma or injury. He does state that the injection provided no relief and that the lower injection actually caused worsening pain for 4 days. Patient continues to experience chronic pain in this knee related to a work injury. Patient did have a knee scope to clean up the torn meniscus however made no additional change in his pain. Patient does state that he is scheduled for follow-up with Dr. Chase tomorrow. Patient uses [id number] Tylenol and ibuprofen along with heat and ice and topicals such as a THC cream however only gets minimal relief. His Jesus has been reviewed and is appropriate. Review of Systems: General: No recent weight changes, no fever, no sleep disturbances Respiratory: No cough, no shortness of air, no recurring pulmonary infections Cardiovascular/peripheral vascular: No chest pain, no palpitations, no edema, no shortness of breath Gastrointestinal: No new onset incontinence, normal bowel movements reported Genitourinary: No new onset incontinence Musculoskeletal: Right knee pain Psychiatric: [Normal mood/affect] Neurological: [Denies weakness in extremities], [denies balance issues] Objective:: Physical Exam: General: Alert and oriented x3, no acute distress, pleasant and cooperative Lungs: Respirations even and unlabored, symmetrical chest expansion Eyes: PERRL Musculoskeletal: Flexion and extension of right knee somewhat guarded secondary to pain, [antalgic gait noted] Neurological: Speech clear, no gross sensory deficit Assessment:: Low back pain, right knee pain, right knee osteoarthritis Plan:: Patient continues to experience significant pain in his right knee that was unrelieved with recent injections. I will order the patient a compounded cream and we will follow-up with him in 2 weeks following his visit with Dr. Chase's office for reevaluation of symptoms and plan of care. Patient has been instructed to contact the clinic with any concerns before the next appointment. Dr. Eldridge has reviewed this note and agrees with this plan of care. This note was dictated using voice recognition software and make contain errors or omissions. [facility] Disclaimer: The information contained in this section may have been updated after the patient was seen, as this information can be updated by other users. Medical History Abnormal electrocardiography Dizziness History of bradycardia History of migraine Syncope Tobacco dependence syndrome Surgical History H/O elbow surgery left History of colonoscopy History of shoulder surgery left x2 shoulder scope History of surgery tumor removed from left chest area Family History Other Family history of cancer Family history of hyperlipidemia Family history of hypertension Family history of myocardial infarction Social History Smoking Status: Current every day smoker tobacco type: cigarettes packs per day: 1 years smoked: 35 alcohol intake: former substance use type: marijuana current occupational status: employed Travel in the last 8 weeks: None household members: none housing: house marital status: single caffeine: Yes
== END ==
PROVIDERS: PCP Family Medicine; Visit Provider Nurse Practitioner Family
DX: M17.11 Unilateral primary osteoarthritis, right knee (principal); M25.561 Pain in right knee; M54.50 Low back pain, unspecified
CPT/HCPCS: 99212; G0463

== ENCOUNTER → 2023-12-06 09:22 | Outpatient (POV) | payer OTHER, MEDICAID, SELFPAY ==
--- NOTE | 2023-12-06 10:04 | A.OFFVIS_ITS ---
[facility] Pain Management SOAP Note Subjective:: Patient is a pleasant 48-year-old male who presents today for follow-up. We are currently treating the patient for right knee pain/osteoarthritis, low back pain, elbow pain. Today he rates his pain a 4 out of 10. Patient denies any new trauma or injury. He does state that the compounded cream did not really seem to do anything on his knee however he states it did significantly improve his elbow symptoms. Patient does state that Dr. Chase did try to order an additional nerve block however it again was denied by insurance. Patient is unsure why it is getting denied and cannot say for sure what type of block it wants. Patient states he does have a follow-up with this office on December 21. His Jesus has been reviewed and is appropriate. Review of Systems: General: No recent weight changes, no fever, no sleep disturbances Respiratory: No cough, no shortness of air, no recurring pulmonary infections Cardiovascular/peripheral vascular: No chest pain, no palpitations, no edema, no shortness of breath Gastrointestinal: No new onset incontinence, normal bowel movements reported Genitourinary: No new onset incontinence Musculoskeletal: Right knee pain Psychiatric: [Normal mood/affect] Neurological: [Denies weakness in extremities], [denies balance issues] Objective:: Physical Exam: General: Alert and oriented x3, no acute distress, pleasant and cooperative Lungs: Respirations even and unlabored, symmetrical chest expansion Eyes: PERRL Musculoskeletal: Flexion and extension of right knee somewhat guarded secondary to pain, [antalgic gait noted] Neurological: Speech clear, no gross sensory deficit Assessment:: Low back pain, right knee pain/osteoarthritis, elbow pain Plan:: Patient continues to experience significant pain in his right knee with limited range of motion. Patient has tried intra-articular injections with Dr. Chase and trigger point injections at our office with minimal improvement. I have discussed with the patient if he continues to have chronic pain in this area and is not a candidate for a knee replacement he may be beneficial candidate for a spinal cord stimulator trial. Risk and benefits and educational handouts were given to the patient at today's visit. We will follow-up with this in 1 month for reevaluation of symptoms and plan of care. Patient has been instructed to contact the clinic with any concerns before the next appointment. Dr. Eldridge has reviewed this note and agrees with this plan of care. This note was dictated using voice recognition software and make contain errors or omissions. [facility] Disclaimer: The information contained in this section may have been updated after the patient was seen, as this information can be updated by other users. Medical History Abnormal electrocardiography Dizziness History of bradycardia History of migraine Syncope Tobacco dependence syndrome Surgical History H/O elbow surgery left History of colonoscopy History of shoulder surgery left x2 shoulder scope History of surgery tumor removed from left chest area Family History Other Family history of cancer Family history of hyperlipidemia Family history of hypertension Family history of myocardial infarction Social History Smoking Status: Current every day smoker tobacco type: cigarettes packs per day: 1 years smoked: 35 alcohol intake: former substance use type: marijuana current occupational status: employed Travel in the last 8 weeks: None household members: none housing: house marital status: single caffeine: Yes
[2023-12-06 10:40] VITALS: BP 125/79; PULSE 82; RESP 18; O2SAT 96; BMI 23.1
== END ==
PROVIDERS: PCP Family Medicine; Visit Provider Nurse Practitioner Family
DX: M17.11 Unilateral primary osteoarthritis, right knee (principal); M25.561 Pain in right knee; M54.50 Low back pain, unspecified; M25.529 Pain in unspecified elbow
CPT/HCPCS: 99212; G0463

== ENCOUNTER 2024-01-04 11:02 | Outpatient (POV) | payer OTHER, MEDICAID, SELFPAY ==
--- NOTE | 2024-01-04 11:24 | EXP.PAIN.SOA ---
[facility] Pain Management SOAP Note Subjective:: Patient is a pleasant 48-year-old male who presents today for follow-up. We are currently treating the patient for right knee pain/osteoarthritis, low back pain, elbow pain, lower right foot neuropathy. Today he rates his pain a 7 out of 10. Patient denies any new trauma or injury. He does state that he continues to have pain into and around his right knee with numbness and tingling into his lower right foot. Patient states that after trigger point injections he did have some improvement of the numbness however it is already back into 4 of his toes and the top of his ankle. Patient does state that this is an aching, throbbing sensation with numbness and tingling and does interfere with his ability perform activities of daily living. He does state that he did go back to Dr. Chase and discuss about the spinal cord stimulator trial and he was recommending that he proceed forward with this option. His Jesus has been reviewed and is appropriate. Review of Systems: General: No recent weight changes, no fever, no sleep disturbances Respiratory: No cough, no shortness of air, no recurring pulmonary infections Cardiovascular/peripheral vascular: No chest pain, no palpitations, no edema, no shortness of breath Gastrointestinal: No new onset incontinence, normal bowel movements reported Genitourinary: No new onset incontinence Musculoskeletal: Right knee pain, right foot/ankle pain Psychiatric: [Normal mood/affect] Neurological: [Denies weakness in extremities], [denies balance issues] Objective:: Physical Exam: General: Alert and oriented x3, no acute distress, pleasant and cooperative Lungs: Respirations even and unlabored, symmetrical chest expansion Eyes: PERRL Musculoskeletal: Flexion and extension of right knee somewhat guarded secondary to pain, [antalgic gait noted] Neurological: Speech clear, no gross sensory deficit Assessment:: Right knee pain/osteoarthritis, low back pain with lumbar radiculopathy symptoms right-sided, elbow pain, right foot neuropathy Plan:: Patient continues to experience significant pain from his right knee down into his right foot. Patient did have limited range of motion of his right knee during today's exam. Patient has tried and failed conservative therapies. I have discussed with the patient the spinal cord stimulator trial. Risk and benefits were discussed with the patient and he would like to proceed forward with this plan of care. I will order the patient a psychological evaluation and if he is deemed an appropriate candidate we will proceed forward with this plan of care.Patient will be sent for psychological evaluation and will follow-up in clinic in 1 month for reevaluation of symptoms and plan of care. Patient has been instructed to contact the clinic with any concerns before the next appointment. Dr. Eldridge has reviewed this note and agrees with this plan of care. This note was dictated using voice recognition software and make contain errors or omissions. [facility] Disclaimer: The information contained in this section may have been updated after the patient was seen, as this information can be updated by other users. Medical History Abnormal electrocardiography Dizziness History of bradycardia History of migraine Syncope Tobacco dependence syndrome Surgical History H/O elbow surgery left History of colonoscopy History of shoulder surgery left x2 shoulder scope History of surgery tumor removed from left chest area Family History Other Family history of cancer Family history of hyperlipidemia Family history of hypertension Family history of myocardial infarction Social History Smoking Status: Current every day smoker tobacco type: cigarettes packs per day: 1 years smoked: 35 alcohol intake: former substance use type: marijuana current occupational status: employed Travel in the last 8 weeks: None household members: none housing: house marital status: single caffeine: Yes
[2024-01-04 12:39] VITALS: BP 138/74; PULSE 70; RESP 18; O2SAT 99; BMI 22.4
== END 2024-01-04 23:59 ==
PROVIDERS: PCP Family Medicine; Visit Provider Nurse Practitioner Family
DX: M17.11 Unilateral primary osteoarthritis, right knee (principal); M25.561 Pain in right knee; M54.16 Radiculopathy, lumbar region; M25.529 Pain in unspecified elbow; G62.9 Polyneuropathy, unspecified
CPT/HCPCS: 99212; G0463

== ENCOUNTER 2024-02-01 09:35 | Outpatient (POV) | payer MEDICAID, SELFPAY ==
[2024-02-01 09:41] VITALS: BP 137/85; PULSE 79; RESP 20; BMI 23.1
--- NOTE | 2024-02-01 12:12 | EXP.PAIN.SOA ---
[facility] Pain Management SOAP Note Subjective:: Patient is a pleasant 48-year-old male who presents today for follow-up of psychological evaluation. Today he rates his pain an 8 out of 10. He denies any new trauma or injury. He states he continues to have chronic pain in his low back that does radiate down into his lower extremities primarily to his right knee and lower right foot neuropathy symptoms. He does describe this pain as a constant aching, throbbing sensation with numbness and tingling and does interfere with his ability perform activities of daily living. Patient has been to neurosurgery and was told he is a nonsurgical candidate at this time. Patient did go for his psychological evaluation and states that he would like to proceed forward with the spinal cord stimulator trial. Patient has tried and failed conservative therapies such as oral medication, heat and ice, topicals, physical therapy, at home stretching exercise for longer than 6 weeks. Review of Systems: General: No recent weight changes, no fever, no sleep disturbances Respiratory: No cough, no shortness of air, no recurring pulmonary infections Cardiovascular/peripheral vascular: No chest pain, no palpitations, no edema, no shortness of breath Gastrointestinal: No new onset incontinence, normal bowel movements reported Genitourinary: No new onset incontinence Musculoskeletal: Low back pain, right knee pain, right foot pain Psychiatric: [Normal mood/affect] Neurological: [Denies weakness in extremities], [denies balance issues] Objective:: Physical Exam: General: Alert and oriented x3, no acute distress, pleasant and cooperative Lungs: Respirations even and unlabored, symmetrical chest expansion Eyes: PERRL Musculoskeletal: Flexion and extension of lumbar [spine] somewhat guarded secondary to pain, [antalgic gait noted] positive right leg raise with decreased sensation to light touch and decreased reflexes Neurological: Speech clear, no gross sensory deficit Assessment:: Degenerative disc disease of lumbar spine with lumbar radiculopathy symptoms, low back pain, right leg pain, right knee pain, right foot pain Plan:: Patient continues to experience significant pain throughout his low back with radiating symptoms down his entire right extremity. I have reviewed over again the risk and benefits of the spinal cord stimulator trial and the patient would like to proceed forward with this plan of care. Patient is not on any blood thinners. I have counseled the patient that we will wait until we have the official psychological evaluation and if he is deemed an appropriate candidate we will proceed forward with ordering the spinal cord stimulator trial. Patient is agreeable to this plan of care. We will contact the patient once we have this documentation and once we have insurance approval for specific date and time of this procedure. Patient has tried and failed conservative therapies. Patient has been instructed to contact the clinic with any concerns before the next appointment. Dr. Eldridge has reviewed this note and agrees with this plan of care. This note was dictated using voice recognition software and make contain errors or omissions. [facility] Disclaimer: The information contained in this section may have been updated after the patient was seen, as this information can be updated by other users. Medical History History of bradycardia History of migraine Tobacco dependence syndrome Abnormal electrocardiography Syncope Dizziness Surgical History History of surgery tumor removed from left chest area H/O elbow surgery left History of shoulder surgery left x2 shoulder scope History of colonoscopy Family History Other Family history of cancer Family history of hyperlipidemia Family history of hypertension Family history of myocardial infarction Social History Smoking Status: Current every day smoker tobacco type: cigarettes packs per day: 1 years smoked: 35 alcohol intake: former substance use type: marijuana current occupational status: other Travel in the last 8 weeks: None household members: none housing: house marital status: single caffeine: Yes
== END 2024-02-01 23:59 ==
LOC: SC.PAIN 09:35
PROVIDERS: PCP Family Medicine; Visit Provider Nurse Practitioner Family
DX: M51.16 Intervertebral disc disorders with radiculopathy, lumbar region (principal); M54.50 Low back pain, unspecified; M79.604 Pain in right leg; M25.561 Pain in right knee; M79.671 Pain in right foot
CPT/HCPCS: 99212; G0463

== ENCOUNTER 2024-02-20 11:25 | Outpatient (CLI) | payer MEDICAID, SELFPAY ==
[2024-02-20 11:43] LABS: Basophils # 0.1 K/mm3 (0-0.2); Basophils % 0.9 % (0.1-2.0); Eosinophils # 0.2 K/mm3 (0.0-0.4); Eosinophils % 2.8 % (0.1-12.0); Hematocrit 44.8 % (42.0-52.0); Hemoglobin 14.2 g/dL (14.1-18.0); Lymphocytes # 1.6 K/mm3 (0.7-4.5); Lymphocytes % 27.1 % (10-50); Mean Corpuscular HGB Conc 31.7 g/dL (31.8-35.4); Mean Corpuscular Hemoglobin 32.1 pg (27.0-31.2); Mean Corpuscular Volume 101.2 fl (80-94); Monocytes # 0.5 K/mm3 (0.1-1.0); Neutrophils # 3.5 K/mm3 (1.8-7.8); Neutrophils % 60.2 % (37.0-80.0); Platelet Count 246 K/mm3 (142-424); Red Blood Count 4.42 M/mm3 (4.60-6.20); Red Cell Distribution Width 13.6 % (11.5-17.5); White Blood Count 5.9 K/mm3 (4.8-10.8)
[2024-02-20 12:02] LABS: Alanine Aminotransferase 19 U/L (12-78); Albumin Level 4.4 g/dl (3.5-5.0); Albumin/Globulin Ratio 1.8 (1.1-1.8); Alkaline Phosphatase 72 U/L (38-126); Anion Gap 6.9 mEq/L (5-15); Aspartate Amino Transferase 25 U/L (17-59); Bilirubin,Total 0.5 mg/dl (0.2-1.3); Blood Urea Nitrogen 12 mg/dl (9-20); Calcium 9.4 mg/dl (8.4-10.2); Carbon Dioxide 29 mmol/L (22.0-30.0); Chloride 107 mmol/L (98-107); Estimated Glomerular Filt Rate 90 ml/min (>60); GFR (African American) 109 ML/MIN (>60); Globulin 2.5 g/dL (1.3-3.2); Glucose 83 mg/dl (74-100); Potassium 3.9 mmoL/L (3.5-5.1); Sodium 139 mmol/L (136-145); Total Protein,Serum 6.9 g/dl (6.3-8.2)
== END 2024-02-20 23:59 | disposition home or self-care (01) ==
LOC: LAB 11:25
PROVIDERS: PCP Family Medicine; Visit Provider Orthopaedic Surgery
DX: Z01.818 Encounter for other preprocedural examination (principal); M79.604 Pain in right leg
CPT/HCPCS: 36415; 80053; 85025

== ENCOUNTER 2024-02-23 08:25 | Day surgery (SDC) | payer MEDICAID, SELFPAY ==
[2024-02-22 09:33] VITALS: BMI 22.8
[2024-02-23] VITALS (9 sets, daily range): BP systolic 118–138; BP diastolic 69–79; PULSE 53–81; RESP 14–18; TEMP 36.2–36.8; O2SAT 94–99
[2024-02-23] MEDS: LACTATED RINGERS 1000ML 1,000 ML 25 ML IV (09:43)
--- NOTE | 2024-02-23 11:17 | EXP.ANES.CKL ---
[facility] Disclaimer: The information contained in this section may have been updated after the patient was seen, as this information can be updated by other users. Medical History History of bradycardia History of migraine Tobacco dependence syndrome Abnormal electrocardiography Syncope Dizziness Surgical History History of surgery tumor removed from left chest area H/O elbow surgery left History of shoulder surgery left x2 shoulder scope History of colonoscopy Family History Other Family history of cancer Family history of hyperlipidemia Family history of hypertension Family history of myocardial infarction Social History Smoking Status: Current every day smoker tobacco type: cigarettes packs per day: 1 years smoked: 35 alcohol intake: former substance use type: marijuana current occupational status: other Travel in the last 8 weeks: None household members: none housing: house marital status: single caffeine: Yes [facility] Anesthesia Checklist Patient Identification Patient Identification: Arm Band and Verbal (Name & ) Structural Data Admitted From: Home Planned Operative Procedure/s: RT. Knee scope Consent for Planned Operative Procedure(s) Verified: Yes Verified Documents: Surgical Consent and History and Physical NPO Status Verified Time NPO: 15:00 Chart Verification Results Verified: CBC, BMP, ECG and Chest Xray Additional verifications Patient : No Anesthesia Reactions: Yes (woke-up during a procedure) Hx Blood Transfusions: No Blood Transfusion Reaction: No Cardiovascular Assessment Heart Sounds: S1 & S2 (Gareth) Pulse Rhythm: Irregular Peripheral Edema: No Airway Assessment Mallampati Score:: Class I C-Spine Mobility Assessed: Yes (FROM) TMJ Mobility Assessed: Yes Dentition: Good Dentition (Nothing loose per pt.) Neurological Assessment Level of Consciousness: Awake, Alert, Appropriate and Follows Commands Hx Seizures: Yes Numbness or tingling in extremities: Yes (RT leg/foot) Anesthesia Plan Anesthesia Risk discussed: Yes Anesthesia Plan: Verified ASA Class: II Anesthesia Type: General
[2024-02-23] MEDS: CEFAZOLIN SODIUM 1 GM in 0.9 % SODIUM CHLORIDE 50 ML IV (11:45)
[2024-02-23] MEDS: BUPIVACAINE 0.25% 30ML VIAL 75 MG (11:45)
--- NOTE | 2024-02-23 11:46 | EXP.OP.NOTE ---
Date of procedure: 02/23/24 Pre-op Diagnosis:: Persistent right knee pain status post previous knee arthroscopy Post-op Diagnosis:: Same with significant synovitis medial lateral gutters and patellofemoral joint Procedure performed:: Right knee arthroscopy with extensive debridement and synovectomy medial lateral gutters patellofemoral joint Surgeon:: Eder Chase DO Anesthesia: GETA Estimated blood loss (mL): 0 Operative findings:: Significant synovitis and scarring intercondylar notch patellofemoral joint medial lateral gutters Operative note:: Patient is identified preoperatively. Right knee marked with yes my initials. Transported operative suite. Placed upon the operating bed. General anesthesia ministered airway secured. Right lower extremity was then prepped and draped normal sterile fashion. Once prepped and draped final operative timeout performed to identify proper patient procedure and extremity. Everyone involved the case agreed. No counter indications to beginning. Did receive preoperative antibiotics. Marking pen was used to jeffy the bony landmarks of the knee and standard portal sites. Esmarch was used to exsanguinate the extremity and pneumatic tourniquet was inflated to 300 mmHg. Skin knife was used to incise standard anterior lateral portal and blunt with trocar was placed in patellofemoral joint it was difficult to place the trocar secondary to scarring in the lateral joint line and patellofemoral joint. Once trocar was placed was exchanged with a camera and diagnostic arthroscopy began. I swept into the medial joint line where the anterior medial portal was made under direct visualization with an 18-gauge spinal needle. Within the medial joint line placed a probe in the medial joint there was evidence of previous medial meniscectomy but no evidence of recurrent tear of the medial meniscus. However in the medial gutter and the anterior medial aspect of the knee there was significant scarring and synovitis using the sucker shaver a synovectomy and debridement of the scarring was performed this was pinching between the condyle and the tibia upon flexion of the knee and this was resolved after excision. Tensions brought in the intercondylar notch where again there was a large amount of synovitis and scarring this was again debrided with a sucker shaver sled into the intercondylar notch to clear the scarring and synovitis present there and swept into the lateral joint line the lateral joint line the lateral meniscus was intact there was significant thickening and scarring in the lateral gutter and anterior lateral aspect of the knee. Camera was then replaced into the medial joint line and sucker shaver was used to debride scarring synovitis in the anterior lateral gutter swept into the medial and lateral gutters back of the patellofemoral joint no further pathology was seen the cartilage although very slightly softened on the medial joint line was intact and there was some mild softening of the trochlear cartilage without gross tearing of the cartilage. Complete drive-through the knee and synovectomy was completed cameras removed the joint was drained local anesthesia filtrated the portal sites skin closed with nylon stitch sterile dressing placed from foot to thigh patient waken anesthesia taken recovery stable condition. Condition: stable Disposition: PACU Complications:: None apparent
--- NOTE | 2024-02-23 12:13 | P.PNANES_ITS ---
[facility] Anesthesia Record Part I Anesthesia Record I Intake, IV Amount: 950 Hydration: Adequate Estimated blood loss (mL): 25 Urine output (mL): 0 Blood Products used (#): none Blood Pressure: 135/74 SaO2: 97 Pulse Rate: 81 Airway Patency: Patent Respiratory Rate: 14 Temperature: 97.8 F Patient is:: Awake (Talking) and Stable Stable to PACU at:: 11:58
--- NOTE | 2024-02-23 12:40 | EXP.ANES.II ---
[facility] Anesthesia Record Part II Anesthesia Record Part II Discharge Time: 12:13 Destination: Surgical Day Care (OP Surgery) PACU nurse assessment reviewed?: Yes Patient Condition:: Good Anesthesia Complications:: None Swallowing reflex intact?: Yes Airway Patency: Patent Cyanosis?: No Blood Pressure: 120/75 SaO2: 96 Respiratory Rate: 18 Pulse Rate: 72 Temperature: 98.3 F Mental Status: Alert & Oriented Pain level:: 0 Nausea and/or vomitting:: None Intake, IV Amount: 950 Hydration: Adequate
--- NOTE | 2024-02-23 12:41 | SUR.PHASEI ---
1220-Dr. Chase @ [facility] talking to pt. No new orders received. 1223-Fariba adams @ [facility] t/o Pacu stay.
== END 2024-02-23 12:53 | disposition home or self-care (01) ==
PROVIDERS: PCP Family Medicine; Visit Provider Orthopaedic Surgery
PROC: (CPT 29870; principal; 2024-02-23 10:00)
DX: M65.861 Other synovitis and tenosynovitis, right lower leg (principal); M79.604 Pain in right leg
CPT/HCPCS: 29881; 96374; J2405

== ENCOUNTER 2024-06-18 07:18 | Day surgery (SDC) | payer MEDICAID, SELFPAY ==
[2024-06-14 14:16] VITALS: BMI 23.1
[2024-06-18 07:30] VITALS: BP 112/72; PULSE 56; RESP 16; TEMP 36.3; O2SAT 100
[2024-06-18] MEDS: LACTATED RINGERS 1000ML 1,000 ML 100 ML IV (07:36)
--- NOTE | 2024-06-18 07:39 | P.PCN_ITS ---
Procedure: Date: 06/18/24 Patient Date of :: 1975 Procedure Performed:: Colonoscopy with polypectomy by means other than snare Indications:: History of colon polyps Note: Colonoscopy and March 2023 was somewhat complicated by spasticity/tortuosity. Hemorrhoids confirmed. Adenomatous polyps were removed at 70, 45, and at 40 cm. Prior colonoscopy in November 2021 was complicated by moderate to poor bowel preparation and poor relaxation. Large complex adenomas at 60 cm, 30 cm, and a 20 cm were excised. Performing Provider:: José Manuel Cote MD Referring Provider:: . Sedation:: Monitored anesthesia care Procedure:: After informed consent was obtained the patient was taken to the endoscopy suite. Sedation ensued after the patient was transferred to the left lateral decubitus position. Pulse, blood pressure, and oxygen saturation were monitored throughout the procedure. Digital rectal exam revealed no significant abnormality. The colonoscope was placed in position. The entire colon was ev aluated. The colonoscope was carefully removed and the patient was transferred to recovery in stable condition. Please see findings and specimens below for detail. Findings:: Bowel preparation moderate Fairly significant lack of relaxation Unchanged hemorrhoidal cushions Small cecal polyp Specimens:: Cecal polyp (cold biopsy forceps) Recommendations:: Timing of repeat colonoscopy is pending pathology will likely be between 3-5 years. Complications:: No immediate Estimated blood obtained (mL): 1 Colonoscopy Component Colonoscopy Component Was a colonoscopy performed during today's procedure?: Yes Recommended follow up colonoscopy of at least 10 years?: No If no, follow up colonoscopy recommended in ___ years?: (See above) Reason for not recommending >/= 10 yr follow-up interval?: (See above)
--- NOTE | 2024-06-18 07:41 | EXP.ANES.CKL ---
[facility] Disclaimer: The information contained in this section may have been updated after the patient was seen, as this information can be updated by other users. Medical History History of lymphoma History of bradycardia History of migraine Tobacco dependence syndrome Abnormal electrocardiography Syncope Dizziness Surgical History History of arthroscopic knee surgery History of surgery H/O elbow surgery History of shoulder surgery History of colonoscopy Family History Other Family history of cancer Family history of hyperlipidemia Family history of hypertension Family history of myocardial infarction Social History Smoking Status: Current every day smoker tobacco type: cigarettes packs per day: 1 years smoked: 35 alcohol intake: former substance use type: marijuana current occupational status: other Travel in the last 8 weeks: None household members: none housing: house marital status: single caffeine: Yes [facility] Anesthesia Checklist Patient Identification Patient Identification: Arm Band and Verbal (Name & ) Structural Data Admitted From: Home Planned Operative Procedure/s: Colonoscopy Consent for Planned Operative Procedure(s) Verified: Yes Verified Documents: Surgical Consent and History and Physical NPO Status Verified Time NPO: 00:00 Additional verifications Anesthesia Reactions: Yes (woke-up during a procedure) Hx Blood Transfusions: No Blood Transfusion Reaction: No Airway Assessment Mallampati Score:: Class II C-Spine Mobility Assessed: Yes TMJ Mobility Assessed: Yes Dentition: Good Dentition Neurological Assessment Level of Consciousness: Awake Hx Seizures: No Numbness or tingling in extremities: No Anesthesia Plan Anesthesia Risk discussed: Yes Anesthesia Plan: Verified ASA Class: II Anesthesia Type: MAC
[2024-06-18 07:46] VITALS: O2SAT 100
[2024-06-18 08:18] VITALS: BP 119/81; PULSE 65; RESP 18; TEMP 36.3; O2SAT 100
[2024-06-18 08:28] VITALS: BP 117/79; PULSE 54; RESP 16; O2SAT 98
[2024-06-18 08:38] VITALS: BP 114/78; PULSE 52; RESP 16; O2SAT 99
[2024-06-18 08:48] VITALS: BP 103/74; PULSE 56; RESP 16; TEMP 36.6; O2SAT 100
== END 2024-06-18 08:48 | disposition home or self-care (01) ==
PROVIDERS: PCP Family Medicine; Visit Provider Surgery
PROC: 0DJD8ZZ Inspection of Lower Intestinal Tract, Via Natural or Artificial Opening Endoscopic (ICD-10-PCS; CPT 45380; principal; 2024-06-18 08:30)
DX: Z12.11 Encounter for screening for malignant neoplasm of colon (principal); Z86.010 Personal history of colon polyps; K64.9 Unspecified hemorrhoids; K63.5 Polyp of colon
CPT/HCPCS: 45380; J2704; J7120

== ENCOUNTER 2024-07-04 10:00 | Outpatient (RCR) | payer MEDICAID, SELFPAY ==
--- NOTE | 2024-04-15 13:34 | HMH.PTOPEV ---
PT Outpatient Evaluation Rehab PT Outpatient Evaluation Start: 04/15/24 13:04 Freq: Status: Active Protocol: Document 04/15/24 13:04 STELLA (Rec: 04/15/24 13:33 STELLA Laptop) E-signed By Jeyson Padilla, PT Outpatient Therapy Subjective History Subjective History This is the initial PT eval for Derek Camargo, 48 yowm who presents with significant weakness and pain in the R LE ~ 8 wks S/P R knee arthroscopy for scar tissue removal. He reports having a prior R PMM performed ~ 1 yr ago with continued pain and stiffness since that time. He presents today wearing a knee brace and using one axillary crutch for ambulation. He reports consistent pain most of the day and difficulty ambulating. He reports no significant PMH . New diagnosis of cancer in past 12 No months? Chief Complaint Pain,Stiff,Weakness Symptom Type Sharp,Stabbing,Burning Symptoms Relieved By Rest/Positioning Symptoms Aggravated By Physical Activity Prior Functional Limitations None Current Functional Limitations Housework,Standing,Sitting, Squatting,Recreation Activity, Walking,Stairs Symptom Description Constant but Variable Level of pain today (0-10) 6 Pain scale - at its worst (0-10) 10 Hip/Knee Eval Gait Observation General Gait Pattern Observation Antalgic Gait,Decrease Weight Bear (R),Decrease Stride Lngth (R),Decrease Stride Lngth (L) Assistive Device Assistive Devices Axillary Crutches Palpation Tenderness right Knee Palpation Finding Tenderness Knee Palpation Overall Comment Medial jt line 4/4, lateral jt line 2/4 MMT Hip Flexion Strength Grade 3 Fair Hip Abduction Strength Grade 3 Fair Hip Adduction Strength Grade 3+ Fair+ Hip Extension Strength Grade 3 Fair Knee Extension Strength Grade 2 Poor Knee Flexion Strength Grade 2 Poor ROM Knee Extension Active Range of Motion ( -24 degrees) Knee Flexion Active Range of Motion ( 24-84 degrees) Lower Extremity Functional Index Activities Today, do you or would you have any difficulty at all with: a.Any of your usual work, housework or Quite a bit of difficulty school activities b. Your usual hobbies, recreational or Quite a bit of difficulty sporting activities c. Getting into or out of the bath Moderate difficulty d. Walking between rooms Quite a bit of difficulty e. Putting on your shoes or socks A little bit of difficulty f. Squatting Extreme difficulty or unable to perform activity g. Lifting an object, like a bag of Moderate difficulty groceries from the floor h. Performing light activities around Quite a bit of difficulty your home i. Performing heavy activities around Extreme difficulty or unable your home to perform activity j. Getting into or out of a car Moderate difficulty k. Walking 2 blocks Quite a bit of difficulty l. Walking a mile Extreme difficulty or unable to perform activity m. Going up or down 10 stairs (about 1 Quite a bit of difficulty flight of stairs) n. Standing for 1 hour Moderate difficulty o. Sitting for 1 hour Moderate difficulty p. Running on even ground Extreme difficulty or unable to perform activity q. Running on uneven ground Extreme difficulty or unable to perform activity r. Making sharp turns while running fast Extreme difficulty or unable to perform activity s. Hopping Extreme difficulty or unable to perform activity t. Rolling over in bed Moderate difficulty LEFI Score Lower Extremity Functional Index Score 21 Outpatient Therapy Assessment Impairments Problems/Impairmments Palpation Tenderness,Impaired Range of Motion,Impaired Strength,Impaired Endurance, Impaired Transfers,Impaired Gait Pattern,Impaired Walking, Impaired Standing,Impaired Sitting,Impaired Driving, Impaired Lifting,Impaired Household Care,Impaired Stair Climbing,Impaired Incline Stepping,Impaired Stepping on Uneven Surface,Impaired Squatting,Impaired Recreational Activities, Impaired Running,Impaired Jumping,Increased Edema, Subjective C/O Pain,Impaired Self Care/Self Management Prognosis Rehab Potential Good Comment Significant remaining reduction of A/PROM of the R knee post surgery noted. Skilled therapy is indicated to aid in return to prior level of function with increased R LE strength, increased R LE ROM, and decreased pain in the R knee. Clinical Impression Consistent with Diagnosis Yes Short Term Goals Number of Weeks 4 Decreased Palpation Tenderness Yes: 2/4 throughout R knee Increase Range of Motion Yes: R knee 0-100 deg Increase Strength Yes: R LE grossly > 3/5 throughout Improve Gait Pattern with Assistive Yes: No antalgic gait pattern Device Improve LEFI Score Yes: >40 Decrease Subjective C/O Pain Yes: 02/20 R knee Patient to be Ind w/ HEP Yes [place] Nurse Goals Number of Weeks 8 Decreased Palpation Tenderness Yes: 1/4 throughout R knee Increase Range of Motion Yes: 0-120 deg R knee Increase Strength Yes: R LE grossly >4/5 throughout Improve Gait Pattern without Assistive Yes: no antalgic gait Device Improve Ability For Household Care Yes: without discomfort Return to Recreational Activities Yes Improve LEFI Score Yes: >60 Decrease Subjective C/O Pain Yes: 12/23 R Knee Patient to be Ind w/ Advanced HEP Yes Outpatient Therapy Plan of Care Treatment Plan May Include Therapeutic Exercise Including Home Yes Exercise Program Manual Therapy Techniques Yes Neuromuscular Re-education Yes Therapeutic Activities to Return to Yes Previous Functional/Work Level Gait Training Yes ADL/Self Care Education Yes Thermal Modalities Yes Electrical Stimulation Yes Ultrasound/Phonophoresis Yes Orthotics/Bracing/Splinting Yes Vasopneumatic Compression Pump Yes Massage Yes Manual Lymphatic Drainage Yes Eval/Re-Eval Yes Aquatic Therapy Yes Frequency Times per week 2 Duration Number of Weeks 8 Addendums This patient is a candidate for social No or vocational rehab? Patient/Guardian verbally acknowledges Yes understanding of treatment program and consents to further treatment? Patient/Guardian verbally acknowledges Yes understanding of diagnosis, prognosis and goals for treatment? Eval Complexity PT Charges 98783 - High Complexity Shoulder/Elbow Eval Shoulder Objective Measurements Elbow Objective Measurements PHYSICIAN CERTIFICATION: I certify the specified therapy services for Derek Camargo are required, authorized, and reviewed every 30 days.
--- NOTE | 2024-05-17 15:30 | HMH.RHREAS ---
Rehab Reassessment Rehab OP Re-assessment Start: 04/15/24 13:04 Freq: Status: Active Protocol: Document 05/17/24 15:10 PHORNE (Rec: 05/17/24 15:26 PHORNE [id number]) E-signed By Jeyson Padilla PT Lower Extremity Functional Index Activities Today, do you or would you have any difficulty at all with: a.Any of your usual work, housework or Moderate difficulty school activities b. Your usual hobbies, recreational or Quite a bit of difficulty sporting activities c. Getting into or out of the bath A little bit of difficulty d. Walking between rooms A little bit of difficulty e. Putting on your shoes or socks A little bit of difficulty f. Squatting Moderate difficulty g. Lifting an object, like a bag of A little bit of difficulty groceries from the floor h. Performing light activities around A little bit of difficulty your home i. Performing heavy activities around Moderate difficulty your home j. Getting into or out of a car A little bit of difficulty k. Walking 2 blocks Moderate difficulty l. Walking a mile Quite a bit of difficulty m. Going up or down 10 stairs (about 1 A little bit of difficulty flight of stairs) n. Standing for 1 hour Moderate difficulty o. Sitting for 1 hour No difficulty p. Running on even ground Extreme difficulty or unable to perform activity q. Running on uneven ground Extreme difficulty or unable to perform activity r. Making sharp turns while running fast Extreme difficulty or unable to perform activity s. Hopping Extreme difficulty or unable to perform activity t. Rolling over in bed No difficulty LEFI Score Lower Extremity Functional Index Score 41 Rehab Re-assessment Subjective Subjective Pt reports little pain overall and none with ambulation this date. I just feel like my quad is really weak and I can' t get that leg straight. Lacho makes me hunch over when I walk. Objective Objective Notes Pain 0/10 at this time, 3/10 at worst. TTP: 1/4 L knee AROM R knee: 8-120 deg MMT: R HIP FLEX 4+/5, KNEE EXT 4+/5, KNEE FLEX 5/5, HIP ABD 4+/5. LEFS this date 41 vs 21 on IE. Assessment Progress Assessment Progressing as Expected Assessment Notes Pt has shown significant improvement in overall R knee ROM and strength, but he continues to have R quadriceps MM weakness and is lacking R knee ext which limits his ability to ambulate effectively. Skilled therapy remains necessary to aid return to proper ambulation and return to PLOF. Patient goals met ST/7 LT/[address]/7 LT/8 Plan Plan Continue per initial POC. Frequency of Therapy 2 x/wk Duration of therapy 4 wks Time and Billing Re-Eval Time 14 Re-Eval Billing Units 1 PHYSICIAN CERTIFICATION: I certify the specified therapy services for Derek Camargo are required, authorized, and reviewed every 30 days.
--- NOTE | 2024-06-20 15:23 | HMH.RHREAS ---
Rehab Reassessment Rehab OP Re-assessment Start: 04/15/24 13:04 Freq: Status: Active Protocol: Document 06/20/24 15:13 PHORNE (Rec: 06/20/24 15:23 PHORNE [id number]) E-signed By Jeyson Padilla, PT Lower Extremity Functional Index Activities Today, do you or would you have any difficulty at all with: a.Any of your usual work, housework or Moderate difficulty school activities b. Your usual hobbies, recreational or Extreme difficulty or unable sporting activities to perform activity c. Getting into or out of the bath No difficulty d. Walking between rooms A little bit of difficulty e. Putting on your shoes or socks No difficulty f. Squatting Quite a bit of difficulty g. Lifting an object, like a bag of No difficulty groceries from the floor h. Performing light activities around A little bit of difficulty your home i. Performing heavy activities around Moderate difficulty your home j. Getting into or out of a car No difficulty k. Walking 2 blocks Moderate difficulty l. Walking a mile Extreme difficulty or unable to perform activity m. Going up or down 10 stairs (about 1 Moderate difficulty flight of stairs) n. Standing for 1 hour A little bit of difficulty o. Sitting for 1 hour No difficulty p. Running on even ground Extreme difficulty or unable to perform activity q. Running on uneven ground Extreme difficulty or unable to perform activity r. Making sharp turns while running fast Extreme difficulty or unable to perform activity s. Hopping Extreme difficulty or unable to perform activity t. Rolling over in bed A little bit of difficulty LEFI Score Lower Extremity Functional Index Score 41 Rehab Re-assessment Subjective Subjective Pt reports worsening pain throughout the R LE and R knee inferiorly. I have fallen 3 times in the last 12 days. Over the last 10 days my knee feels like it has gotten worse than it was. I still feel like I have fire shooting down the back of my leg from my hip to my foot. Pain consistently 8/10 at worst. He reports he is scheduled to see an orthopedic teacher selection specialist in ~2 wks. Objective Objective Notes Pain 6/10 at this time, 8/10 at worst. TTP: 2/4 L knee AROM R knee: 3-125 deg MMT: R HIP FLEX 3/5 ( significant reduction from last RA), KNEE EXT 4+/5, KNEE FLEX 5/5, HIP ABD 03/17. LEFS this date 41 vs 21 on IE Assessment Progress Assessment Slower Than Expected Assessment Notes Pt has continued to improve AROM of the R knee, but has developed worsening c/o pain, tenderness to palpation, and weakness in the R LE. Concern for his many reported falls and increased neurologically complex issues. He continues to need skilled therapy to return to PLOF. Patient goals met ST/7 LT/8 Plan Plan Continue per initial POC. Frequency of Therapy 2 x/wk Duration of therapy 4 wks Time and Billing Re-Eval Time 13 Re-Eval Billing Units 1 PHYSICIAN CERTIFICATION: I certify the specified therapy services for Derek Camargo are required, authorized, and reviewed every 30 days.
== END 2024-07-04 10:05 | disposition home or self-care (01) ==
LOC: PT 10:00
PROVIDERS: Visit Provider Orthopaedic Surgery
DX: M25.561 Pain in right knee (principal); Z98.890 Other specified postprocedural states
CPT/HCPCS: 97010; 97014; 97016; 97035; 97110; 97112; 97140; 97163; 97164; 97530; G0283

== ENCOUNTER 2024-08-01 09:40 | Outpatient (CLI) | payer MEDICAID, SELFPAY ==
--- NOTE | 2024-08-01 09:44 | XR_ITS ---
FINAL REPORT CLINICAL HISTORY: right knee pain COMPARISON: 03/27/2023 FINDINGS: Three views of the right knee were obtained. There is no acute fracture or dislocation. The joint spaces are well preserved. There is no acute soft tissue abnormality. IMPRESSION: No acute abnormality identified. Reviewed, Interpreted and Dictated by Ricki Garzon MD Transcribed by Bianka Bucio Authenticated and . [facility]
== END 2024-08-01 23:59 | disposition home or self-care (01) ==
LOC: RAD 09:41
PROVIDERS: PCP Family Medicine; Visit Provider Orthopaedic Surgery
DX: M25.561 Pain in right knee (principal)
CPT/HCPCS: 73562

== ENCOUNTER 2024-08-28 10:15 | Outpatient (POV) | payer MEDICAID, SELFPAY ==
[2024-08-28 11:31] VITALS: BP 118/85; PULSE 83; RESP 18; O2SAT 98; BMI 22.4
--- NOTE | 2024-08-28 12:25 | A.OFFVIS_ITS ---
[facility] Disclaimer: The information contained in this section may have been updated after the patient was seen, as this information can be updated by other users. Medical History History of lymphoma History of bradycardia History of migraine Tobacco dependence syndrome Abnormal electrocardiography Syncope Dizziness Surgical History History of arthroscopic knee surgery right History of surgery tumor removed from left chest area H/O elbow surgery left History of shoulder surgery left x2 shoulder scope History of colonoscopy Family History Other Family history of cancer Family history of hyperlipidemia Family history of hypertension Family history of myocardial infarction Social History Smoking Status: Current every day smoker tobacco type: cigarettes packs per day: 1 years smoked: 35 alcohol intake: former substance use type: marijuana current occupational status: other Travel in the last 8 weeks: None household members: none housing: house marital status: single caffeine: Yes PM Subjective & Objective Subjective Subjective:: Patient is a pleasant 49-year-old male who presents today for follow-up. Today he rates his pain a 6 out of 10. Patient does state from our last visit that was in January he did end up having knee surgery on the right side back in February. Patient states however this did not provide any improvement but made his overall symptoms worse. Patient states since then he has had a frozen knee And that he has worsening altered sensation all along the right leg. He states he cannot feel 2 of his toes all the way to his buttocks. Patient states that this surgery was done by Dr. Derek Chase here at [facility] and that he has been back to see him and states that he does not believe it has to do with the surgery but possible nerve related. Patient states today that he is scheduled for an EMG test on September 27 out of [place]. Patient does state that his right knee will randomly give out and that he can no longer even straighten this extremity due to the pain and limited range of motion. Patient has tried and failed conservative therapy including oral medications, heat and ice, topicals, physical therapy, continued at home stretching exercise for longer than 6 weeks and now failed knee surgery. Patient has been to a neurosurgeon and was a nonsurgical candidate. Patient did complete a psychological evaluation and was deemed an appropriate candidate for the stimulator trial he does state that he would like to try again for this device. His Jesus has been reviewed and is appropriate. Review of Systems: General: No recent weight changes, no fever, no sleep disturbances Respiratory: No cough, no shortness of air, no recurring pulmonary infections Cardiovascular/peripheral vascular: No chest pain, no palpitations, no edema, no shortness of breath Gastrointestinal: No new onset incontinence, normal bowel movements reported Genitourinary: No new onset incontinence Musculoskeletal: Low back pain, right leg pain, right knee pain, altered sensation Psychiatric: [Normal mood/affect] Neurological: [Denies weakness in extremities], [denies balance issues] Pain at rest (0-10 scale): 6 Objective Objective:: Physical Exam: General: Alert and oriented x3, no acute distress, pleasant and cooperative Lungs: Respirations even and unlabored, symmetrical chest expansion Eyes: PERRL Musculoskeletal: Flexion and extension of lumbar [spine] somewhat guarded secondary to pain, [antalgic gait noted] decreased sensation to light touch and decreased reflexes along the right side, patient unable to complete a leg raise due to pain and limited range of motion following his knee surgery, patient is in a knee brace during today's visit Neurological: Speech clear, no gross sensory deficit Has patient had previous pain injection?: No Conservative treatment options previously tried: Home exercise plan Length of treatment: Longer than 12 weeks Meds Home Medications and Allergies Home Medications ?Medication ?Instructions ?Recorded ?Confirmed ?Type sumatriptan succinate 100 mg tablet 100 mg PO .prn #10 tabs 02/19/24 08/28/24 Rx New Prescriptions to Start Prescriptions: Allergies Allergy/AdvReac Type Severity Reaction Status Date / Time adhesive Allergy Verified 08/01/24 10:28 nizatidine [From Axid] Allergy Verified 08/01/24 10:28 Assessment and Plan *Assessment and plan (1) Lumbar radiculopathy: Status: Acute Category: Medical Code(s): M54.16 - Radiculopathy, lumbar region (2) Degenerative disc disease, lumbar: Status: Acute Category: Medical Code(s): M51.36 - Other intervertebral disc degeneration, lumbar region Plan Patient is experiencing significant disability throughout his low back with radiating symptoms down his right lower extremity. Patient did have decreased sensation to light touch and decreased reflexes during today's visit. Patient is unable to complete a leg raise due to the worsening pain and limited mobility in the right leg. Patient has been deemed an appropriate candidate for the spinal cord stimulator through psychological evaluation. I did review over the risk and benefits of this procedure and he would like to proceed forward with this plan of care. Patient has tried and failed conservative therapy including continued at home stretching exercise for longer than 12 weeks. Patient will be submitted for the spinal cord stimulator trial under fluoroscopy. Patient has been instructed to contact the clinic with any concerns before the next appointment. Dr. Eldridge has reviewed this note and agrees with this plan of care. This note was dictated using voice recognition software and make contain errors or omissions. All injections are used with Lidocaine or Bupivacaine and Depo Medrol.
== END 2024-08-28 23:59 | disposition home or self-care (01) ==
PROVIDERS: PCP Family Medicine; Visit Provider Nurse Practitioner Family
DX: M51.16 Intervertebral disc disorders with radiculopathy, lumbar region (principal); F17.210 Nicotine dependence, cigarettes, uncomplicated
CPT/HCPCS: 99212; G0463

== ENCOUNTER 2024-09-11 12:53 | Emergency (ER) | payer MEDICAID, SELFPAY ==
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
[2024-09-11 13:20] VITALS: BP 129/75; PULSE 72; RESP 19; TEMP 36.8; O2SAT 98; BMI 23.1
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
[2024-09-11 14:10] VITALS: BP 129/75; PULSE 72; RESP 19; TEMP 36.8
== END 2024-09-11 14:11 | disposition home or self-care (01) ==
PROVIDERS: Emergency Provider Nurse Practitioner; PCP Family Medicine
DX: S99.911A Unspecified injury of right ankle, initial encounter (principal); X50.0XXA Overexertion from strenuous movement or load, initial encounter
CPT/HCPCS: 73610; 73630; 99213; G0381

== ENCOUNTER 2024-10-07 11:32 | Outpatient (POV) | payer OTHER, SELFPAY ==
[2024-10-07 12:09] VITALS: BP 118/66; PULSE 89; RESP 18; O2SAT 95; BMI 22.4
--- NOTE | 2024-10-07 12:20 | A.OFFVIS_ITS ---
[facility] Disclaimer: The information contained in this section may have been updated after the patient was seen, as this information can be updated by other users. Medical History History of lymphoma History of bradycardia History of migraine Tobacco dependence syndrome Abnormal electrocardiography Syncope Dizziness Surgical History History of arthroscopic knee surgery right History of surgery tumor removed from left chest area H/O elbow surgery left History of shoulder surgery left x2 shoulder scope History of colonoscopy Family History Other Family history of cancer Family history of hyperlipidemia Family history of hypertension Family history of myocardial infarction Social History Smoking Status: Current every day smoker tobacco type: cigarettes packs per day: 1 years smoked: 35 alcohol intake: former substance use type: marijuana current occupational status: other household members: none housing: house marital status: single caffeine: Yes PM Subjective & Objective Subjective Subjective:: Patient is a pleasant 49-year-old male who presents today for follow-up. Today he rates his pain 8 out of 10. Patient states he still continues to have the chronic leg issues bilaterally. He is still stating that the right leg is the worst due to having recent right knee replacement and now having issues with worsening numbness and limited mobility. Patient does state that he ended up having an EMG test done at and that did end up seeing a spine surgeon. He states that the spine surgeon felt like it had nothing to do with his back and was more related to his last surgery for the right knee replacement. Patient states that that physician was not necessarily recommending the spinal cord stimulator. Patient states he then went and saw Dr. Chase here at [facility] who did want to have 1 additional MRI and that was told that there was a possible option of going back in for revision. He does state that he is not interested in this option. Patient has tried and failed conservative therapy. His Jesus has been reviewed and is appropriate. Review of Systems: General: No recent weight changes, no fever, no sleep disturbances Respiratory: No cough, no shortness of air, no recurring pulmonary infections Cardiovascular/peripheral vascular: No chest pain, no palpitations, no edema, no shortness of breath Gastrointestinal: No new onset incontinence, normal bowel movements reported Genitourinary: No new onset incontinence Musculoskeletal: Bilateral leg pain Psychiatric: [Normal mood/affect] Neurological: [Denies weakness in extremities], [denies balance issues] Pain at rest (0-10 scale): 8 Objective Objective:: Physical Exam: General: Alert and oriented x3, no acute distress, pleasant and cooperative Lungs: Respirations even and unlabored, symmetrical chest expansion Eyes: PERRL Musculoskeletal: Flexion and extension of lumbar [spine] somewhat guarded secondary to pain, [antalgic gait noted] Neurological: Speech clear, no gross sensory deficit Has patient had previous pain injection?: No Conservative treatment options previously tried: Home exercise plan Length of treatment: Longer than 12 Meds Home Medications and Allergies Home Medications ?Medication ?Instructions ?Recorded ?Confirmed ?Type No Known Home Medications 09/12/24 10/01/24 History New Prescriptions to Start Prescriptions: Allergies Allergy/AdvReac Type Severity Reaction Status Date / Time adhesive Allergy Verified 10/01/24 13:41 nizatidine (From Axid) Allergy Verified 10/01/24 13:41 Assessment and Plan *Assessment and plan (1) Lumbar radiculopathy: Status: Acute Category: Medical Code(s): M54.16 - Radiculopathy, lumbar region (2) Degenerative disc disease, lumbar: Status: Acute Category: Medical Code(s): M51.36 - Other intervertebral disc degeneration, lumbar region (3) Right leg pain: Status: Acute Category: Medical Code(s): M79.604 - Pain in right leg Plan I did discuss still the spinal cord stimulator option and I do believe with everything he does have going on that that this would be the most beneficial to provide any chance of day-to-day improvement. We will see about getting a copy from [employer] regarding the neurosurgeons note and the copy of the EMG test. Patient will return to clinic in 1 month for reevaluation of symptoms and plan of care. Patient has been instructed to contact the clinic with any concerns before the next appointment. Dr. Eldridge has reviewed this note and agrees with this plan of care. This note was dictated using voice recognition software and make contain errors or omissions. All injections are used with Lidocaine or Bupivacaine and Depo Medrol.
== END 2024-10-07 23:59 | disposition home or self-care (01) ==
LOC: SC.PAIN 11:33
PROVIDERS: PCP Family Medicine; Visit Provider Nurse Practitioner Family
DX: M51.16 Intervertebral disc disorders with radiculopathy, lumbar region (principal); M79.604 Pain in right leg; F17.210 Nicotine dependence, cigarettes, uncomplicated; Z96.651 Presence of right artificial knee joint
CPT/HCPCS: 99212; G0463

== ENCOUNTER 2024-12-09 08:33 | Outpatient (CLI) | payer OTHER, SELFPAY ==
--- NOTE | 2024-12-09 08:35 | MR_ITS ---
FINAL REPORT CLINICAL HISTORY: pelvis pain. f/u femoral nerve in right leg after surgery COMPARISON: None FINDINGS: Multiplanar MR images of the pelvis were performed without contrast. There is mild narrowing of the hip joints bilaterally. There is no fracture, bone bruising or marrow edema. No bony mass is identified. There is no evidence of avascular necrosis. No significant joint effusion is seen. The musculature is intact. The tendons are intact. There is no localized mass or inflammatory change identified. There is no abnormality along the course of the neurovascular bundles. IMPRESSION: Mild degenerative narrowing of the hip joints bilaterally, otherwise unremarkable MRI of the pelvis. Reviewed, Interpreted and Dictated by Ricki Garzon MD Transcribed by Ashely Herrera Authenticated and [facility]
== END 2024-12-09 23:59 | disposition home or self-care (01) ==
LOC: RAD 08:35
PROVIDERS: PCP Family Medicine; Visit Provider Orthopaedic Surgery
DX: R10.2 Pelvic and perineal pain (principal)
CPT/HCPCS: 72195

== ENCOUNTER 2025-02-27 14:35 | Outpatient (POV) | payer OTHER, MEDICAID, SELFPAY ==
[2025-02-27 15:06] VITALS: BP 103/69; PULSE 81; RESP 14; O2SAT 96; BMI 22.4
--- NOTE | 2025-02-27 15:07 | EXP.PAIN.SOA ---
[facility] Disclaimer: The information contained in this section may have been updated after the patient was seen, as this information can be updated by other users. Medical History History of lymphoma History of bradycardia History of migraine Tobacco dependence syndrome Abnormal electrocardiography Syncope Dizziness Surgical History History of arthroscopic knee surgery right History of surgery tumor removed from left chest area H/O elbow surgery left History of shoulder surgery left x2 shoulder scope History of colonoscopy Family History Other Family history of cancer Family history of hyperlipidemia Family history of hypertension Family history of myocardial infarction Social History Smoking Status: Current every day smoker tobacco type: cigarettes packs per day: 1 years smoked: 35 alcohol intake: former substance use type: marijuana current occupational status: other Travel in the last 8 weeks: None household members: none housing: house marital status: single caffeine: Yes Have you lived/traveled outside US in past 30 days?: No Contact w/someone who lives/traveled outside US past 30 days?: No Exposure to someone with infectious disease in past 14 days?: No Do you have a fever (greater than 100.4 F or 38 C)?: No Have you tested positive for COVID-19: No Exposed to someone with COVID-19 in past 14 days?: No Do you have a sore throat?: No Do you have a cough?: No Do you have any weakness?: No Do you have any diarrhea?: No Are you experiencing any unusual bleeding?: No Do you have any muscle aches/pain?: No Do you have any abdominal pain?: No Are you experiencing loss of taste or smell?: No PM Subjective & Objective Subjective Subjective:: Patient is a pleasant 49-year-old male who presents today for continued right leg pain. Today he rates his pain a 5 out of 10. Patient denies any new injuries or falls. 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 Patient states that they are not giving any additional options to have any additional improvement from this. He is being told that this is going to be a chronic issue. Patient states the pain is constant and affects his ability perform activities of daily living such as cooking and cleaning. His Jesus has been reviewed and is appropriate. Review of Systems: General: No recent weight changes, no fever, no sleep disturbances Respiratory: No cough, no shortness of air, no recurring pulmonary infections Cardiovascular/peripheral vascular: No chest pain, no palpitations, no edema, no shortness of breath Gastrointestinal: No new onset incontinence, normal bowel movements reported Genitourinary: No new onset incontinence Musculoskeletal: Right leg pain Psychiatric: [Normal mood/affect] Neurological: [Denies weakness in extremities], [denies balance issues] Pain at rest (0-10 scale): 5 Objective Objective:: Physical Exam: General: Alert and oriented x3, no acute distress, pleasant and cooperative Lungs: Respirations even and unlabored, symmetrical chest expansion Eyes: PERRL Musculoskeletal: Flexion and extension of right knee somewhat guarded secondary to pain, [antalgic gait noted] Neurological: Speech clear, no gross sensory deficit Has patient had previous pain injection?: No Conservative treatment options previously tried: Home exercise plan Length of treatment: Longer than 12 weeks Meds Home Medications and Allergies Home Medications ?Medication ?Instructions ?Recorded ?Confirmed ?Type No Known Home Medications 09/12/24 01/09/25 History New Prescriptions to Start Prescriptions: Allergies Allergy/AdvReac Type Severity Reaction Status Date / Time adhesive Allergy Verified 01/09/25 10:33 nizatidine (From Axid) Allergy Verified 01/09/25 10:33 Assessment and Plan *Assessment and plan (1) Lumbar radiculopathy: Status: Acute Category: Medical Code(s): M54.16 - Radiculopathy, lumbar region (2) Status post arthroscopy of right knee: Status: Acute Category: Surgical Code(s): Z98.890 - Other specified postprocedural states Plan I did discuss with the patient due to the updated findings from his EMG variant [facility] stating that his femoral nerve has been severely impaired following his knee scope that I do think it would be beneficial to try pregabalin. Patient will be given a 2-week supply of pregabalin 50 mg at bedtime I will also send in a prescription of [place] 5 mg 3 times daily. Patient was counseled to try these medications a few days apart to make sure he has no side effects. Patient acknowledges understanding agrees with plan of care. Patient will return to clinic in 2 weeks. I did also discuss with the patient due to the continued chronic pain that he is now experiencing related to the nerve damage that it may still be beneficial to proceed forward with the spinal cord stimulator trial. I will order a psychological evaluation and if he is deemed an appropriate candidate we will proceed forward with ordering the trial at a later date. We will follow-up with this at future visits. Risks and benefits of the medication have been explained in detail to the patient. The patient does understand the risk of dependence on the medication when given over a prolonged period. Patient has been advised of risks of oversedation with the prescribed medication. Narcan has been offered to the paitent in the event of oversedation. Patient has been advised that a family member should also be educated regarding administration of Narcan. The patient has been advised to consult with his/her primary care provider and pharmacist regarding drug-drug interaction of medications currently prescribed. Patient has been prescribed a controlled substance after being counseled on the medication, medication safety, and possible side effects. Opioid contract was reviewed and signed by the patient, and that they have agreed to all of the terms set forth by our compliance program. A UDS is needed to verify patient's compliance with our office pain contract. This is ordered based off specific treatments related to chronic pain with the potential to abuse certain medications. Patient has been instructed to contact the clinic with any concerns before the next appointment. Dr. Eldridge has reviewed this note and agrees with this plan of care. This note was dictated using voice recognition software and make contain errors or omissions.
== END 2025-02-27 23:59 | disposition home or self-care (01) ==
PROVIDERS: PCP Family Medicine; Visit Provider Nurse Practitioner Family
DX: M54.16 Radiculopathy, lumbar region (principal); Z98.890 Other specified postprocedural states; F17.210 Nicotine dependence, cigarettes, uncomplicated; Z73.89 Other problems related to life management difficulty
CPT/HCPCS: 99212; G0463

== ENCOUNTER 2025-03-14 14:50 | Outpatient (POV) | payer OTHER, MEDICAID, SELFPAY ==
--- NOTE | 2025-03-14 15:06 | A.OFFVIS_ITS ---
[facility] Disclaimer: The information contained in this section may have been updated after the patient was seen, as this information can be updated by other users. Medical History History of lymphoma History of bradycardia History of migraine Tobacco dependence syndrome Abnormal electrocardiography Syncope Dizziness Surgical History History of arthroscopic knee surgery right History of surgery tumor removed from left chest area H/O elbow surgery left History of shoulder surgery left x2 shoulder scope History of colonoscopy Family History Other Family history of cancer Family history of hyperlipidemia Family history of hypertension Family history of myocardial infarction Social History Smoking Status: Current every day smoker tobacco type: cigarettes packs per day: 1 years smoked: 35 alcohol intake: former substance use type: marijuana current occupational status: other Travel in the last 8 weeks?: None household members: none housing: house marital status: single caffeine: Yes PM Subjective & Objective Subjective Subjective:: Patient is a pleasant 49-year-old male who presents today for follow-up. Today he rates his pain a 7 out of 10. He denies any new falls or changes related to new injuries. He does state now that he feels like both his knees buckle at the same time. He continues to have the chronic nerve pain that radiates down his entire right leg. Patient also states that the worsening groin pain has a lot more pressure. Patient at our last visit was given a 2-week dose of Lyrica 50 mg at bedtime and [place] 5 mg 3 times a day. Patient does state that he felt like when he took these together he did have a little bit of dizziness but it did subside within an hour. Patient does not feel like these really did much to provide any improvement. His Jesus has been reviewed and is appropriate. Review of Systems: General: No recent weight changes, no fever, no sleep disturbances Respiratory: No cough, no shortness of air, no recurring pulmonary infections Cardiovascular/peripheral vascular: No chest pain, no palpitations, no edema, no shortness of breath Gastrointestinal: No new onset incontinence, normal bowel movements reported Genitourinary: No new onset incontinence Musculoskeletal:right knee pain, right leg pain Psychiatric: [Normal mood/affect] Neurological: [Denies weakness in extremities], [denies balance issues] Pain at rest (0-10 scale): 7 Objective Objective:: Physical Exam: General: Alert and oriented x3, no acute distress, pleasant and cooperative Lungs: Respirations even and unlabored, symmetrical chest expansion Eyes: PERRL Musculoskeletal: Flexion and extension of right knee somewhat guarded secondary to pain, [antalgic gait noted] Neurological: Speech clear, no gross sensory deficit Has patient had previous pain injection?: No Conservative treatment options previously tried: Home exercise plan Length of treatment: Longer than 12 weeks Meds Home Medications and Allergies Home Medications ?Medication ?Instructions ?Recorded ?Confirmed ?Type hydrocodone 5 mg-acetaminophen 325 1 tab PO TID #42 tabs 02/27/25 Rx mg tablet pregabalin 50 mg capsule 50 mg PO HS #14 caps 02/27/25 Rx New Prescriptions to Start Prescriptions: Allergies Allergy/AdvReac Type Severity Reaction Status Date / Time adhesive Allergy Verified 01/09/25 10:33 nizatidine (From Axid) Allergy Verified 01/09/25 10:33 Assessment and Plan *Assessment and plan (1) Status post arthroscopy of right knee: Status: Acute Category: Surgical Code(s): Z98.890 - Other specified postprocedural states (2) Complex tear of medial meniscus of right knee: Status: Acute Qualifiers: Tear current or old: old Qualified Code(s): M23.203 - Derangement of unspecified medial meniscus due to old tear or injury, right knee Category: Medical Code(s): S83.231A - Complex tear of medial meniscus, current injury, right knee, initial encounter Plan I did discuss with the patient that we will adjust the pregabalin and change it to 75 mg twice a day since he is having more issues with the nervelike sensations. I do believe he would still benefit from trying to get the stimulator approved. We will continue to monitor regarding this. Patient will return to clinic in 2 weeks for reevaluation of symptoms and plan of care. Patient has been instructed to contact the clinic with any concerns before the next appointment. Dr. Eldridge has reviewed this note and agrees with this plan of care. This note was dictated using voice recognition software and make contain errors or omissions. All injections are used with Lidocaine, Bupivacaine and dexamethasone. Occasionally urine drug screen is needed to verify patient's compliance with our office pain contract. This is ordered based off specific treatments related to chronic pain with the potential to abuse certain medications.
[2025-03-14 15:11] VITALS: BP 121/75; PULSE 78; RESP 14; O2SAT 97; BMI 23.1
== END 2025-03-14 23:59 | disposition home or self-care (01) ==
PROVIDERS: PCP Family Medicine; Visit Provider Nurse Practitioner Family
DX: Z98.890 Other specified postprocedural states (principal); M23.203 Derangement of unspecified medial meniscus due to old tear or injury, right knee; F17.210 Nicotine dependence, cigarettes, uncomplicated
CPT/HCPCS: 99212; G0463

== ENCOUNTER 2025-03-27 11:26 | Outpatient (POV) | payer OTHER, MEDICAID, SELFPAY ==
[2025-03-27 11:35] VITALS: BP 117/82; PULSE 94; RESP 18; O2SAT 95; BMI 22.4
--- NOTE | 2025-03-27 12:06 | A.OFFVIS_ITS ---
[facility] Disclaimer: The information contained in this section may have been updated after the patient was seen, as this information can be updated by other users. Medical History History of lymphoma History of bradycardia History of migraine Tobacco dependence syndrome Abnormal electrocardiography Syncope Dizziness Surgical History History of arthroscopic knee surgery right History of surgery tumor removed from left chest area H/O elbow surgery left History of shoulder surgery left x2 shoulder scope History of colonoscopy Family History Other Family history of cancer Family history of hyperlipidemia Family history of hypertension Family history of myocardial infarction Social History Smoking Status: Current every day smoker tobacco type: cigarettes packs per day: 1 years smoked: 35 alcohol intake: former substance use type: marijuana current occupational status: other Travel in the last 8 weeks?: None household members: none housing: house marital status: single caffeine: Yes PM Subjective & Objective Subjective Subjective:: Patient is a pleasant 49-year-old male presents today for follow-up. Today he does rate his pain an 8 out of 10. He denies any new changes. He did state that with the increase of the pregabalin it did seem to help additionally and denies any side effects. Patient does state that he is still working with his [employer] insurance for his related injury to his right knee with the nerve damage. Patient is unsure what will be coming up regarding this and is asking whether or not if we can send in a prescription and do more like a 3-month follow-up. His Jesus has been reviewed and is appropriate. Review of Systems: General: No recent weight changes, no fever, no sleep disturbances Respiratory: No cough, no shortness of air, no recurring pulmonary infections Cardiovascular/peripheral vascular: No chest pain, no palpitations, no edema, no shortness of breath Gastrointestinal: No new onset incontinence, normal bowel movements reported Genitourinary: No new onset incontinence Musculoskeletal: Chronic right knee pain/right leg pain Psychiatric: [Normal mood/affect] Neurological: [Denies weakness in extremities], [denies balance issues] Pain at rest (0-10 scale): 8 Objective Objective:: Physical Exam: General: Alert and oriented x3, no acute distress, pleasant and cooperative Lungs: Respirations even and unlabored, symmetrical chest expansion Eyes: PERRL Musculoskeletal: Flexion and extension of right knee somewhat guarded secondary to pain, [antalgic gait noted] Neurological: Speech clear, no gross sensory deficit Has patient had previous pain injection?: No Conservative treatment options previously tried: Home exercise plan Length of treatment: Longer than 12 weeks Meds Home Medications and Allergies Home Medications ?Medication ?Instructions ?Recorded ?Confirmed ?Type hydrocodone 5 mg-acetaminophen 325 1 tab PO TID #42 tabs 02/27/25 03/27/25 Rx mg tablet pregabalin 75 mg capsule (Lyrica) 75 mg PO BID #28 caps 03/14/25 03/27/25 Rx New Prescriptions to Start Prescriptions: Allergies Allergy/AdvReac Type Severity Reaction Status Date / Time adhesive Allergy Verified 03/20/25 09:04 nizatidine (From Axid) Allergy Verified 03/20/25 09:04 Assessment and Plan *Assessment and plan (1) Right leg pain: Status: Acute Category: Medical Code(s): M79.604 - Pain in right leg (2) Lumbar radiculopathy: Status: Acute Category: Medical Code(s): M54.16 - Radiculopathy, lumbar region (3) Status post arthroscopy of right knee: Status: Acute Category: Surgical Code(s): Z98.890 - Other specified postprocedural states Plan I will increase his pregabalin to 100 mg and change it to 3 times a day and provide a 90-day supply. Patient will return to clinic in 3 months. Patient has been instructed to contact the clinic with any concerns before the next appointment. Dr. Eldridge has reviewed this note and agrees with this plan of care. This note was dictated using voice recognition software and make contain errors or omissions. All injections are used with Lidocaine, Bupivacaine and dexamethasone. Occasionally urine drug screen is needed to verify patient's compliance with our office pain contract. This is ordered based off specific treatments related to chronic pain with the potential to abuse certain medications.
== END 2025-03-27 23:59 | disposition home or self-care (01) ==
PROVIDERS: PCP Family Medicine; Visit Provider Nurse Practitioner Family
DX: M79.604 Pain in right leg (principal); M54.16 Radiculopathy, lumbar region; Z98.890 Other specified postprocedural states; F17.210 Nicotine dependence, cigarettes, uncomplicated
CPT/HCPCS: 99212; G0463

== ENCOUNTER 2025-05-05 10:05 | Outpatient (POV) | payer OTHER, MEDICAID, SELFPAY ==
--- NOTE | 2025-05-05 10:27 | EXP.PAIN.SOA ---
[facility] Disclaimer: The information contained in this section may have been updated after the patient was seen, as this information can be updated by other users. Medical History History of lymphoma History of bradycardia History of migraine Tobacco dependence syndrome Abnormal electrocardiography Syncope Dizziness Surgical History History of arthroscopic knee surgery right History of surgery tumor removed from left chest area H/O elbow surgery left History of shoulder surgery left x2 shoulder scope History of colonoscopy Family History Other Family history of cancer Family history of hyperlipidemia Family history of hypertension Family history of myocardial infarction Social History Smoking Status: Current every day smoker tobacco type: cigarettes packs per day: 1 years smoked: 35 alcohol intake: former substance use type: marijuana current occupational status: other Travel in the last 8 weeks?: None household members: none housing: house marital status: single caffeine: Yes Have you lived/traveled outside US in past 30 days?: No Contact w/someone who lives/traveled outside US past 30 days?: No Exposure to someone with infectious disease in past 14 days?: No Do you have a fever (greater than 100.4 F or 38 C)?: No Have you tested positive for COVID-19?: No Exposed to someone with COVID-19 in past 14 days?: No Do you have a sore throat?: No Do you have a cough?: No Do you have any weakness?: No Do you have any diarrhea?: No Are you experiencing any unusual bleeding?: No Do you have any muscle aches/pain?: No Do you have any abdominal pain?: No Are you experiencing loss of taste or smell?: No PM Subjective & Objective Subjective Subjective:: Patient is a pleasant 49-year-old male who presents today for follow-up. Today he rates his pain a 7 or 8 out of 10. He denies any new updates from our last visit. He states overall he is still really doing well with the pregabalin 100 mg 3 times a day however he has noticed occasionally he will get nauseous in between taking this medication and his other medications. Patient is asking if we can do any type of nausea medication as needed. He denies any other changes. His Jesus has been reviewed and is appropriate. Review of Systems: General: No recent weight changes, no fever, no sleep disturbances Respiratory: No cough, no shortness of air, no recurring pulmonary infections Cardiovascular/peripheral vascular: No chest pain, no palpitations, no edema, no shortness of breath Gastrointestinal: No new onset incontinence, normal bowel movements reported Genitourinary: No new onset incontinence Musculoskeletal: Chronic right knee pain Psychiatric: [Normal mood/affect] Neurological: [Denies weakness in extremities], [denies balance issues] Pain at rest (0-10 scale): 7 Objective Objective:: Physical Exam: General: Alert and oriented x3, no acute distress, pleasant and cooperative Lungs: Respirations even and unlabored, symmetrical chest expansion Eyes: PERRL Musculoskeletal: Flexion and extension of right knee somewhat guarded secondary to pain, [antalgic gait noted] Neurological: Speech clear, no gross sensory deficit Has patient had previous pain injection?: No Conservative treatment options previously tried: Home exercise plan Length of treatment: Longer than 12 weeks Meds Home Medications and Allergies Home Medications ?Medication ?Instructions ?Recorded ?Confirmed ?Type hydrocodone 5 mg-acetaminophen 325 1 tab PO TID #42 tabs 02/27/25 03/27/25 Rx mg tablet pregabalin 75 mg capsule (Lyrica) 75 mg PO BID #28 caps 03/14/25 03/27/25 Rx pregabalin 100 mg capsule 100 mg PO TID #180 caps 03/28/25 Rx New Prescriptions to Start Prescriptions: Allergies Allergy/AdvReac Type Severity Reaction Status Date / Time adhesive Allergy Verified 03/20/25 09:04 nizatidine (From Axid) Allergy Verified 03/20/25 09:04 Assessment and Plan *Assessment and plan (1) Status post arthroscopy of right knee: Status: Acute Category: Surgical Code(s): Z98.890 - Other specified postprocedural states (2) Right leg pain: Status: Acute Category: Medical Code(s): M79.604 - Pain in right leg Plan We did discuss regarding the nausea that if we needed to go down on the pregabalin. He states that he really does feel like the current dosage is working well and it is more just times in between or combination of other medications that may be playing a role in making him feel sick. I will send in 30 tablets of Zofran with 2 refills as needed. Patient does already have an appointment in June with our office and does not need refills on his pregabalin at this time. We will follow-up with him at that visit. Patient agrees with this plan of care. Patient has been instructed to contact the clinic with any concerns before the next appointment. Dr. Eldridge has reviewed this note and agrees with this plan of care. This note was dictated using voice recognition software and make contain errors or omissions. All injections are used with Lidocaine, Bupivacaine and dexamethasone. Occasionally urine drug screen is needed to verify patient's compliance with our office pain contract. This is ordered based off specific treatments related to chronic pain with the potential to abuse certain medications.
--- OUTSIDE RECORDS SUMMARY | 2025-05-05 10:28 | XMS_ITS | Encounter Summary ---
Author Organization Healthcare Address [address] [place] [address] Care Team Providers Care Operations Trainer Name Role Phone Ahsan Sung MD Primary Care Provider Encounter Details Date Type Department Care Team ([facility] st Contact Info) Description 09/07/2023 Orders Only External Location [address] [place] [address] Provider, External Social History Tobacco Use Types Packs/Day Years Used Date Smoking Tobacco: Never Assessed Sex and Gender Information Value Date Recorded Sex Assigned at Not on file Legal Sex Male 4:43 PM EDT Gender Identity Not on file Sexual Orientation Not on file documented as of this encounter Plan of Treatment Not on file documented as of this encounter Procedures Procedure Name Priority Date/Time Associated Diagnosis Comments MR NEURO OUTSIDE IMAGES 09/07/2023 11:38 AM EDT documented in this encounter Results * MR NEURO OUTSIDE IMAGES (09/07/2023 11:38 AM EDT) Anatomical Region Laterality Modality Magnetic Resonan ce 09/07/2023 11:3 8 AM EDT us External Provider IMG MRI PROCEDURES Final Resul t documented in this encounter Visit Diagnoses Not on filedocumented in this encounter Care Teams Operations Trainer Relationship Specialty Start Date End Date Ahsan Sung MD [facility] [place] [address] PCP - General 07/08/24 documented as of this encounter
--- OUTSIDE RECORDS SUMMARY | 2025-05-05 10:28 | XMS_ITS | Clinical Summary ---
Author Organization Healthcare Address [address] [place], [place] [id number] Care Team Providers Care Psychological Tests Sales Agent Name Role Phone Ahsan Sung MD Primary Care Provider Allergies Active Allergy Reactions Criticality Noted Date Comments Nizatidine Hives Medium 07/08/2024 Medications SUMAtriptan (Imitrex) 100 MG tablet TAKE 1 TABLET BY MOUTH NEEDED MAX DAILY DOSE 200 MG Active Active Problems Problem Noted Date Diagnosed Date Atrophy of quadriceps femoris muscle 09/28/2024 Lower extremity weakness 09/28/2024 Social History Tobacco Use Types Packs/Day Years Used Date Smoking Tobacco: Every Day Cigarettes 0.3 40 Smokeless Tobacco: Never Alcohol Use Standard Drinks/Week Comments Not Currently 0 (1 standard drink = 0.6 oz pur e alcohol) PHQ-2 Answer Date Recorded Patient Health Questionnaire-2 Score 0 09/27/2024 Sex and Gender Information Value Date Recorded Sex Assigned at Not on file Legal Sex Male 4:43 PM EDT Gender Identity Not on file Sexual Orientation Not on file Last Filed Vital Signs Vital Sign Reading Time Taken Comments Blood Pressure 110/72 09/30/2024 10:54 AM EST Pulse 72 09/30/2024 10:54 AM EST Temperature - - Respiratory Rate - - Oxygen Saturation 97% 09/30/2024 10:54 AM EST Inhaled Oxygen Concentration - - Weight 78 kg (171 lb 15.3 oz) 09/30/2024 10:54 A M EST Height 188 cm (6' 2 ) 09/30/2024 10:54 AM EST Body Mass Index 22.08 09/30/2024 10:54 AM EST Plan of Treatment Health Maintenance Due Date Last Done Comments Y-HIV Screening 1975 [facility]-Hepatitis C Screening 1975 [facility]-/Child/Adol SDOH Screenings 1975 [facility]- SDOH Screenings 1993 [facility]-Adult SDOH Screenings 1993 [facility]-DTaP,Tdap,and Td Vaccine s (1 - Tdap) 1994 [facility]-Hepatitis B Vaccines (1 of 3 - 19+ 3-dose series) 1994 [facility]-Pneumococcal Vaccine: Pediatrics (0 to 5 Years) and At-Risk Patients (6 to 49 Years) (1 of 2 - PCV) 1994 CT Colonography 2020 Colonoscopy 2020 FIT-DNA 2020 FIT 2020 FOBT 2020 Sigmoidoscopy 2020 [facility]-Colorectal Cancer Screening 2020 [id number] Vaccine (3 - 2023- season) 2024 08/28/2021, 07/26/2021 [facility]-Influenza Vaccine (Seas[place] n Ended) 2025 [facility]-Zoster Vaccines (1 of 2) 2025 [facility]-Depression Screening 09/27/2025 09/27/2024 HPV Vaccines Aged Out No longer eligi ble based on patient's age to complete this topic [facility]-HIB Vaccines Aged Out No longer e ligible based on patient's age to complete this topic [facility]-Hepatitis A Vaccines Aged Out No longer eligible based on patient's age to complete this topic [facility]-IPV Vaccines Aged Out No longer e ligible based on patient's age to complete this topic [facility]-Rotavirus Vaccines Aged Out No lo nger eligible based on patient's age to complete this topic Insurance [employer] [facility] MEDICAID Care Teams Psychological Tests Sales Agent Relationship Specialty Start Date End Date Ahsan Sung MD [address] [place] [address] PCP - General 07/08/24
[2025-05-05 11:04] VITALS: BP 119/75; PULSE 89; RESP 14; O2SAT 96; BMI 22.4
== END 2025-05-05 23:59 | disposition home or self-care (01) ==
PROVIDERS: PCP Family Medicine; Visit Provider Nurse Practitioner Family
DX: M79.604 Pain in right leg (principal); Z98.890 Other specified postprocedural states; Z79.899 Other long term (current) drug therapy
CPT/HCPCS: 99212; G0463

== ENCOUNTER 2025-06-23 10:31 | Outpatient (POV) | payer OTHER, MEDICAID, SELFPAY ==
--- OUTSIDE RECORDS SUMMARY | 2025-06-23 10:42 | XMS_ITS | Clinical Summary ---
Author Organization Healthcare Address [address] [place], [place] [id number] Care Team Providers Care Ore Mixer Name Role Phone Ahsan Sung MD Primary [...] Y-HIV Screening 1975 [facility]-Hepatitis C Screening 1975 [facility]-Infant/Child/Adol SDOH Screenings 1975 [facility]- SDOH Screenings 1993 [...] 2020 Sigmoidoscopy 2020 [facility]-Colorectal Cancer Screening 2020 [id number] Vaccine (3 - 2023- season) 2024 08/28/2021, 07/26/2021 [facility]-Influenza Vaccine (#1) 2025 [facility]-Zoster Vaccines (1 of 2) 2025 [...] patient's age to complete this topic Insurance [employer] [facility] MEDICAID Care Teams Ore Mixer Relationship Specialty Start Date End Date Ahsan Sung MD [address] [place] [address] PCP - General 07/08/24
--- OUTSIDE RECORDS SUMMARY | 2025-06-23 10:42 | XMS_ITS | Encounter Summary ---
Author Organization Healthcare Address [address] [place] [address] Care Team Providers Care Field Marketing Team Leader Name Role Phone Ahsan Sung MD Primary Care Provider [phone] Encounter Details Date Type Department Care Team ([facility] st Contact Info) Description 09/07/2023 Orders Only External Location [address] [place] [address] Provider, External Social History Tobacco Use Types [...] on filedocumented in this encounter Care Teams Field Marketing Team Leader Relationship Specialty Start Date End Date Ahsan Sung MD [facility] [place] [address] PCP - General 07/08/24 documented as of this encounter
--- NOTE | 2025-06-23 11:04 | A.OFFVIS_ITS ---
[facility] Disclaimer: The information contained in this section may have been updated after the patient was seen, as this information can be updated by other users. Medical History History of lymphoma History of bradycardia History of migraine Tobacco dependence syndrome Abnormal electrocardiography Syncope Dizziness Surgical History History of arthroscopic knee surgery right History of surgery tumor removed from left chest area H/O elbow surgery left History of shoulder surgery left x2 shoulder scope History of colonoscopy Family History Other Family history of cancer Family history of hyperlipidemia Family history of hypertension Family history of myocardial infarction Social History Smoking Status: Current every day smoker tobacco type: cigarettes packs per day: 1 years smoked: 35 alcohol intake: former substance use type: marijuana current occupational status: other Travel in the last 8 weeks?: None household members: none housing: house marital status: single caffeine: Yes PM Subjective & Objective Subjective Subjective:: Patient is a pleasant 49-year-old male presents today for his 3-month follow-up and medication refill. He denies any new falls however does state that the pain has progressively worsened enough that it will cause him to even get emotional due to the worsening nerve pain. Patient states it is all still and he is right upper thigh that radiates down that leg related to his previous injury with his right knee. Patient is currently managed with pregabalin at 100 mg 3 times a day. He denies any side effects. He does state he just feels like it is not working as well as it previously did. Patient is also asking if there is additional medications we could try. His Jesus has been reviewed and is appropriate. Review of Systems: General: No recent weight changes, no fever, no sleep disturbances Respiratory: No cough, no shortness of air, no recurring pulmonary infections Cardiovascular/peripheral vascular: No chest pain, no palpitations, no edema, no shortness of breath Gastrointestinal: No new onset incontinence, normal bowel movements reported Genitourinary: No new onset incontinence Musculoskeletal: Right leg pain Psychiatric: [Normal mood/affect] Neurological: [Denies weakness in extremities], [denies balance issues] Pain at rest (0-10 scale): 7 Objective Objective:: Physical Exam: General: Alert and oriented x3, no acute distress, pleasant and cooperative Lungs: Respirations even and unlabored, symmetrical chest expansion Eyes: PERRL Musculoskeletal: Flexion and extension of right knee somewhat guarded secondary to pain, [antalgic gait noted] Neurological: Speech clear, no gross sensory deficit Has patient had previous pain injection?: No Conservative treatment options previously tried: Home exercise plan Length of treatment: Longer than 12 weeks Meds Home Medications and Allergies Home Medications ?Medication ?Instructions ?Recorded ?Confirmed ?Type hydrocodone 5 mg-acetaminophen 325 1 tab PO TID #42 ta bs 02/27/25 05/05/25 Rx mg tablet pregabalin 75 mg capsule (Lyrica) 75 mg PO BID #28 cap s 03/14/25 05/05/25 Rx pregabalin 100 mg capsule 100 mg PO TID #180 caps 03/1305/05/25 Rx ondansetron 4 mg disintegrating 4 mg PO Q8H PRN nausea and 05/05/25 Rx tablet vomiting #30 tabs New Prescriptions to Start Prescriptions: Allergies Allergy/AdvReac Type Severity Reaction Status Date / Time adhesive Allergy Verified 03/20/25 09:04 nizatidine (From Axid) Allergy Verified 03/20/25 09:04 Assessment and Plan *Assessment and plan (1) Work related injury: Status: Acute Category: Medical Code(s): Y99.0 - Civilian activity done for income or pay (2) Status post arthroscopy of right knee: Status: Acute Category: Surgical Code(s): Z98.890 - Other specified postprocedural states Plan I did discuss with the patient that I will send in a refill of his pregabalin at 150 mg 3 times a day and also send in a new prescription of meloxicam 15 mg daily. Patient denies any heart or kidney issues. Patient was counseled to take this medication with food and to discontinue all other NSAIDs while trying this medication. Patient was counseled to call us if the meloxicam does provide significant relief and he would like additional refills. Patient will return to clinic in 3 months. We did discuss that I do still believe that he would benefit from the a spinal cord stimulator however his Worker's Comp. did denied this in the past. We will continue to follow-up on this. Patient has been instructed to contact the clinic with any concerns before the next appointment. Dr. Eldridge has reviewed this note and agrees with this plan of care. This note was dictated using voice recognition software and make contain errors or omissions. All injections are used with Lidocaine, Bupivacaine and dexamethasone. Occasionally urine drug screen is needed to verify patient's compliance with our office pain contract. This is ordered based off specific treatments related to chronic pain with the potential to abuse certain medications.
[2025-06-23 11:56] VITALS: BP 131/90; PULSE 76; RESP 14; O2SAT 98; BMI 21.8
== END 2025-06-23 23:59 | disposition home or self-care (01) ==
PROVIDERS: PCP Family Medicine; Visit Provider Nurse Practitioner Family
DX: M79.604 Pain in right leg (principal); Z98.890 Other specified postprocedural states; Y99.0 Civilian activity done for income or pay; Z79.899 Other long term (current) drug therapy; Z79.1 Long term (current) use of non-steroidal anti-inflammatories (NSAID)
CPT/HCPCS: 99212; G0463